=== PATIENT | female | born 1940 | race Caucasian/White ===

== ENCOUNTER 2017-08-30 06:57 | Inpatient (IN) | payer MEDICARE, OTHER ==
[~2017-08-30] VITALS: Ht 154.9 cm; Wt 58.7 kg
[2017-08-30] MEDS ORDERED: SODIUM CHLORIDE 0.9% 1,000 ML IV ONE (07:10)
[2017-08-30 07:54] LABS: Basophils # (auto) 0 uL; Basophils % (auto) 0.7 % (0.0-2.0); Eosinophils # (auto) 0.2 uL; Eosinophils % (auto) 3.4 % (0.0-7.0); Hematocrit 33.5 % (36.0-46.0); Hemoglobin 11.2 g/dL (12.2-16.2); Lymphocytes # (auto) 0.9 uL; Lymphocytes % (auto) 17.2 % (10.0-50.0); Mean Corpuscular Hemoglobin 30.2 pg (28.0-32.0); Mean Corpuscular Hgb Conc. 33.4 g/dL (32.0-36.0); Mean Corpuscular Volume 90.3 fL (80.0-100.0); Monocytes # (auto) 0.3 uL; Monocytes % (auto) 6.3 % (0.0-12.0); Neutrophils # (auto) 3.7 uL; Neutrophils % (auto) 72.4 % (37.0-80.0); Platelet Count (auto) 224 10^3/uL (140-450); Red Blood Cells 3.71 10^6/uL (4.0-5.20); Red Cell Distribution Width 14.7 % (11.8-14.3); White Blood Cell 5.1 10^3/uL (4.4-10.8)
[2017-08-30 08:08] LABS: Albumin 3.1 g/dL (3.4-5.0); BUN/Creatinine Ratio 18.1; Calcium 8.3 mg/dL (8.5-10.1)
[2017-08-30 08:15] LABS: INR 0.96 (0.9-1.15); Partial Thromboplastin Time 24.6 sec (23.78-33.04); Prothrombin Time 10.3 sec (9.27-12.13)
[2017-08-30 08:18] LABS: Bilirubin, Total 0.3 mg/dL (0.2-1.0); Total Protein 6.4 g/dL (6.4-8.2)
[2017-08-30 08:22] LABS: Potassium 2.7 mmol/L (3.5-5.1)
[2017-08-30] MEDS ORDERED: POTASSIUM CHL 10% (20 MEQ/15ML) 15ml ORAL SOLN PO ONE (08:30)
[2017-08-30] MEDS ORDERED: FUROSEMIDE 20 MG/2 ML VIAL IV ONE (09:00)
[2017-08-30] MEDS ORDERED: cloNIDine HCL 0.1 MG TAB PO ONE ×2 (09:00→11:00)
[2017-08-30] MEDS ORDERED: SULF-92 PO (10:06)
[2017-08-30] MEDS ORDERED: MAGN400T5 PO (10:06)
[2017-08-30] MEDS ORDERED: ISOS30TA4 PO (10:06)
[2017-08-30] MEDS ORDERED: FLU01T PO (10:06)
[2017-08-30] MEDS ORDERED: ASPI-231 PO (10:06)
[2017-08-30] MEDS ORDERED: METO25TA62 PO (10:06)
[2017-08-30] MEDS ORDERED: CARB25TA3 PO (10:06)
[2017-08-30] MEDS ORDERED: POTA10TA51 PO (10:06)
[2017-08-30] MEDS ORDERED: CYA100I PO (10:10)
[2017-08-30] MEDS ORDERED: OXYB15TA12 PO (10:10)
[2017-08-30] MEDS ORDERED: OYST500T28 PO (10:10)
[2017-08-30] MEDS ORDERED: CHOL20007 PO (10:10)
[2017-08-30] MEDS ORDERED: ATOR20TA PO (10:10)
[2017-08-30] MEDS ORDERED: CLON05T PO (10:10)
[2017-08-30] MEDS ORDERED: GABA300C10 PO (10:10)
[2017-08-30] MEDS ORDERED: hydrALAZINE HCL 20 MG/ML VL IV ONE (10:15)
[2017-08-30] MEDS ORDERED: clonazePAM 0.5 MG TAB PO PRN (14:00)
[2017-08-30] MEDS ORDERED: ALUM & MAG HYDROX-SIMETH LIQ(MAALOX) 30 ML PO PRN (14:00)
[2017-08-30] MEDS ORDERED: METOPROLOL SUCCINATE XL 50 MG TAB PO ONE ×2 (14:00→14:30)
[2017-08-30] MEDS ORDERED: cefTRIAXone 1GM/10ml IVPUSH 10 ML IV ONE (14:00)
[2017-08-30] MEDS ORDERED: HYDROcodone-ACET 5/325MG TAB PO PRN (14:15)
[2017-08-30] MEDS ORDERED: ONDANSETRON HCL 4 MG/2 ML VIAL IV PRN (14:15)
[2017-08-30] MEDS ORDERED: ACETAMINOPHEN 325 MG TAB PO PRN (14:15)
[2017-08-30] MEDS ORDERED: MILK OF MAGNESIA 30ML SUSP PO PRN (14:15)
[2017-08-30] MEDS ORDERED: TEMAZEPAM 15 MG CAP PO PRN (14:15)
[2017-08-30] MEDS ORDERED: DOCUSATE SOD 100 MG CAP PO PRN (14:15)
[2017-08-30] MEDS ORDERED: CHOLECALCIFEROL (VITD3) 1,000 UNIT TAB PO ONE (14:30)
[2017-08-30] MEDS ORDERED: POTASSIUM CHL 10 Meq TABLET PO ONE (14:30)
[2017-08-30] MEDS ORDERED: MULTIPLE VITAMIN TAB PO ONE (14:30)
[2017-08-30] MEDS ORDERED: ENOXAPARIN SOD 40 MG/0.4 ML SYRINGE SC ONE (14:30)
[2017-08-30] MEDS ORDERED: CARBIDOPA W LEVODOPA 25/100mg TABLET PO ONE (14:30)
[2017-08-30] MEDS ORDERED: OXYBUTYNIN CHL 5 MG TAB PO ONE (14:30)
[2017-08-30] MEDS ORDERED: CYANOCOBALAMIN 500 MCG TAB PO ONE (14:30)
[2017-08-30] MEDS ORDERED: FAMOTIDINE 20 MG TAB PO ONE (14:30)
[2017-08-30] MEDS: SODIUM CHLORIDE 0.9% 1,000 ML IV SCH (15:02)
[2017-08-30] MEDS: IBUPROFEN 600 MG TAB PO SCH ×2 (15:02→22:00)
[2017-08-30] MEDS: cloNIDine HCL 0.1 MG TAB PO PRN ×3 (15:15→22:38)
[2017-08-30] MEDS ORDERED: CALCIUM CHLOR(10%) 100MG/ML 10ML SYRINGE IV ONE (16:22)
[2017-08-30] MEDS ORDERED: DEXTROSE (50%) 50ML SYRG IV ONE (16:22)
[2017-08-30] MEDS ORDERED: SODIUM BICARBONATE 8.4% INJ 50ML SYRINGE IV ONE (16:22)
[2017-08-30] MEDS ORDERED: EPINEPHrine HCL 1 MG/10 ML SYRG IV ONE (16:22)
[2017-08-30 17:00] VITALS: BP 188/71
[2017-08-30] MEDS: BOOST PLUS 8 ounce PO SCH (17:55)
[2017-08-30] MEDS: CALCIUM CARB 500 MG CHEW TAB PO SCH (17:55)
[2017-08-30] MEDS ORDERED: CARBIDOPA W LEVODOPA 25/100mg TABLET PO SCH (18:00)
[2017-08-30] MEDS ORDERED: POTASSIUM CHLORIDE 20 MEQ, LIDOCAINE 1% (LOCAL ANESTH.) 2 ML in SODIUM CHL 0.9% 100 ML IV ONE (18:00)
[2017-08-30 18:34] LABS: Calcium 7.5 mg/dL (8.5-10.1)
[2017-08-30 18:38] LABS: Potassium 2.8 mmol/L (3.5-5.1)
[2017-08-30 19:09] LABS: BUN/Creatinine Ratio 19.4
[2017-08-30 20:10] VITALS: BP 137/54
[2017-08-30 20:10] LABS: Urine Bacteria FEW /hpf (None Seen); Urine Blood Negative /uL (Negative); Urine Specific Gravity 1.008 (1.001-1.035); Urine WBC 27 /hpf (0 - 5)
[2017-08-30 20:23] LABS: Cholesterol 133 mg/dL (< 200); HDL Cholesterol 48 mg/dL (40-59); LDL Cholesterol 75 mg/dL (< 100); Triglycerides 81 mg/dL (< 150)
[2017-08-30 22:00] VITALS: BP 167/67
[2017-08-30] MEDS: GABAPENTIN 300 MG CAP PO SCH (22:00)
[2017-08-30] MEDS: ATORVASTATIN 20 MG TAB PO SCH (22:40)
[2017-08-30] MEDS: FAMOTIDINE 20 MG TAB PO SCH (22:43)
[2017-08-30] MEDS: CARBIDOPA W LEVODOPA 25/100mg TABLET PO SCH (22:45)
[2017-08-31] VITALS (12 sets, daily range): BP systolic 68–196; BP diastolic 46–83
[2017-08-31] MEDS: cloNIDine HCL 0.1 MG TAB PO PRN ×2 (00:43→08:33)
[2017-08-31] MEDS: IBUPROFEN 600 MG TAB PO SCH (06:00)
[2017-08-31] MEDS: CARBIDOPA W LEVODOPA 25/100mg TABLET PO SCH ×5 (06:06→22:33)
[2017-08-31 06:16] LABS: Basophils # (auto) 0 uL; Basophils % (auto) 0.6 % (0.0-2.0); Eosinophils # (auto) 0.1 uL; Eosinophils % (auto) 2.2 % (0.0-7.0); Hematocrit 36.7 % (36.0-46.0); Hemoglobin 12.5 g/dL (12.2-16.2); Lymphocytes # (auto) 0.6 uL; Lymphocytes % (auto) 8.7 % (10.0-50.0); Mean Corpuscular Hemoglobin 30.4 pg (28.0-32.0); Mean Corpuscular Hgb Conc. 33.9 g/dL (32.0-36.0); Mean Corpuscular Volume 89.4 fL (80.0-100.0); Monocytes # (auto) 0.3 uL; Monocytes % (auto) 4.9 % (0.0-12.0); Neutrophils # (auto) 5.8 uL; Neutrophils % (auto) 83.6 % (37.0-80.0); Platelet Count (auto) 211 10^3/uL (140-450); Red Blood Cells 4.11 10^6/uL (4.0-5.20); Red Cell Distribution Width 14.6 % (11.8-14.3); White Blood Cell 6.9 10^3/uL (4.4-10.8)
[2017-08-31 06:41] LABS: Albumin 3.3 g/dL (3.4-5.0); BUN/Creatinine Ratio 18.2; Bilirubin, Total 0.4 mg/dL (0.2-1.0); Calcium 8.2 mg/dL (8.5-10.1); Potassium 3.1 mmol/L (3.5-5.1); Total Protein 6.6 g/dL (6.4-8.2)
[2017-08-31] MEDS: SODIUM CHLORIDE 0.9% 1,000 ML IV SCH (06:46)
[2017-08-31] MEDS: CALCIUM CARB 500 MG CHEW TAB PO SCH ×3 (08:00→18:00)
[2017-08-31] MEDS: BOOST PLUS 8 ounce PO SCH ×3 (08:32→18:00)
[2017-08-31] MEDS: cefTRIAXone 1GM/10ml IVPUSH 10 ML IV SCH (08:33)
[2017-08-31] MEDS: METOPROLOL SUCCINATE XL 50 MG TAB PO SCH (10:00)
[2017-08-31] MEDS ORDERED: ENOXAPARIN SOD 40 MG/0.4 ML SYRINGE SC SCH (10:00)
[2017-08-31] MEDS ORDERED: POTASSIUM CHL 10 Meq TABLET PO SCH (10:00)
[2017-08-31 11:04] LABS: Folate (Folic Acid) 6.6 ng/mL (5.38-24)
[2017-08-31] MEDS: MULTIPLE VITAMIN TAB PO SCH (12:14)
[2017-08-31] MEDS: OXYBUTYNIN CHL 5 MG TAB PO SCH (12:14)
[2017-08-31] MEDS ORDERED: POTASSIUM CHL 20 Meq TABLET PO ONE (12:15)
[2017-08-31] MEDS: FAMOTIDINE 20 MG TAB PO SCH ×2 (12:15→22:33)
[2017-08-31] MEDS: CHOLECALCIFEROL (VITD3) 1,000 UNIT TAB PO SCH (12:15)
[2017-08-31] MEDS: CYANOCOBALAMIN 500 MCG TAB PO SCH (12:15)
[2017-08-31] MEDS ORDERED: FUROSEMIDE 40 MG/4 ML VIAL IV ONE (12:30)
[2017-08-31] MEDS: FUROSEMIDE 40 MG/4 ML VIAL IV SCH (18:46)
[2017-08-31] MEDS: GABAPENTIN 300 MG CAP PO SCH (22:33)
[2017-08-31] MEDS: ATORVASTATIN 20 MG TAB PO SCH (22:33)
[2017-08-31] MEDS: POTASSIUM CHL 10 Meq TABLET PO SCH (22:33)
[2017-09-01] MEDS: cloNIDine HCL 0.1 MG TAB PO PRN ×2 (02:07→05:46)
[2017-09-01 05:57] VITALS: BP 203/73
[2017-09-01] MEDS: CARBIDOPA W LEVODOPA 25/100mg TABLET PO SCH ×5 (06:00→21:44)
[2017-09-01] MEDS: FUROSEMIDE 40 MG/4 ML VIAL IV SCH ×2 (06:27→18:41)
[2017-09-01 07:19] LABS: BUN/Creatinine Ratio 18.7; Calcium 8.5 mg/dL (8.5-10.1); Potassium 3.6 mmol/L (3.5-5.1)
[2017-09-01 09:00] VITALS: BP 146/79
[2017-09-01] MEDS: BOOST PLUS 8 ounce PO SCH ×3 (09:31→18:41)
[2017-09-01] MEDS: cefTRIAXone 1GM/10ml IVPUSH 10 ML IV SCH (09:31)
[2017-09-01] MEDS: CALCIUM CARB 500 MG CHEW TAB PO SCH ×3 (09:31→18:39)
[2017-09-01] MEDS: CHOLECALCIFEROL (VITD3) 1,000 UNIT TAB PO SCH (09:34)
[2017-09-01] MEDS: FAMOTIDINE 20 MG TAB PO SCH ×2 (09:34→21:44)
[2017-09-01] MEDS: POTASSIUM CHL 10 Meq TABLET PO SCH ×2 (09:34→21:44)
[2017-09-01] MEDS: CYANOCOBALAMIN 500 MCG TAB PO SCH (09:35)
[2017-09-01] MEDS: MULTIPLE VITAMIN TAB PO SCH (09:35)
[2017-09-01] MEDS: OXYBUTYNIN CHL 5 MG TAB PO SCH (09:35)
[2017-09-01] MEDS: METOPROLOL SUCCINATE XL 50 MG TAB PO SCH (09:36)
[2017-09-01 13:00] VITALS: BP 93/56
[2017-09-01 17:00] VITALS: BP 148/70
[2017-09-01] MEDS: GABAPENTIN 300 MG CAP PO SCH (21:44)
[2017-09-01] MEDS: ATORVASTATIN 20 MG TAB PO SCH (21:44)
[2017-09-01 23:16] VITALS: BP 150/72
[2017-09-02 05:31] VITALS: BP 129/60
[2017-09-02] MEDS: CARBIDOPA W LEVODOPA 25/100mg TABLET PO SCH ×4 (05:54→18:27)
[2017-09-02] MEDS: FUROSEMIDE 40 MG/4 ML VIAL IV SCH (05:54)
[2017-09-02 07:05] LABS: BUN/Creatinine Ratio 24.3; Potassium 3.6 mmol/L (3.5-5.1)
[2017-09-02] MEDS: BOOST PLUS 8 ounce PO SCH ×3 (08:09→18:24)
[2017-09-02 08:30] VITALS: BP 90/50
[2017-09-02] MEDS: cefTRIAXone 1GM/10ml IVPUSH 10 ML IV SCH (08:44)
[2017-09-02] MEDS: CALCIUM CARB 500 MG CHEW TAB PO SCH ×3 (08:44→18:27)
[2017-09-02] MEDS ORDERED: POTASSIUM CHL 10 Meq TABLET PO SCH (10:00)
[2017-09-02] MEDS ORDERED: CEPH-37 PO (10:20)
[2017-09-02] MEDS ORDERED: FURO20TA3 PO (10:21)
[2017-09-02] MEDS: OXYBUTYNIN CHL 5 MG TAB PO SCH (10:33)
[2017-09-02] MEDS: CHOLECALCIFEROL (VITD3) 1,000 UNIT TAB PO SCH (10:34)
[2017-09-02] MEDS: FAMOTIDINE 20 MG TAB PO SCH (10:34)
[2017-09-02] MEDS: CYANOCOBALAMIN 500 MCG TAB PO SCH (10:34)
[2017-09-02] MEDS: MULTIPLE VITAMIN TAB PO SCH (10:34)
[2017-09-02] MEDS: METOPROLOL SUCCINATE XL 50 MG TAB PO SCH (10:35)
[2017-09-02 12:04] VITALS: BP 116/65
[2017-09-02 12:30] VITALS: BP 155/66
[2017-09-02 16:50] VITALS: BP 159/67
== END 2017-09-02 19:45 | DRG 77 ==
LOC: ER 06:57 → EDBD 06:57 → OVERFLOW 06:58 → CENTRAL 15:30
PROVIDERS: ADMIT Internal Medicine; ATTEND Internal Medicine
DX: I67.4 Hypertensive encephalopathy (principal); J96.91 Respiratory failure, unspecified with hypoxia; I50.33 Acute on chronic diastolic (congestive) heart failure; E44.0 Moderate protein-calorie malnutrition; N39.0 Urinary tract infection, site not specified; E87.0 Hyperosmolality and hypernatremia; G23.1 Progressive supranuclear ophthalmoplegia [Steele-Richardson-Olszewski]; I11.0 Hypertensive heart disease with heart failure; Z66 Do not resuscitate; F03.90 Unspecified dementia, unspecified severity, without behavioral disturbance, psychotic disturbance, mood disturbance, and anxiety; D63.8 Anemia in other chronic diseases classified elsewhere; E87.6 Hypokalemia; F32.9 Major depressive disorder, single episode, unspecified; G20 Parkinson's disease; I25.10 Atherosclerotic heart disease of native coronary artery without angina pectoris; I08.1 Rheumatic disorders of both mitral and tricuspid valves; R55 Syncope and collapse; R00.1 Bradycardia, unspecified; E83.51 Hypocalcemia; N18.2 Chronic kidney disease, stage 2 (mild); F17.200 Nicotine dependence, unspecified, uncomplicated; Z95.1 Presence of aortocoronary bypass graft; Z90.49 Acquired absence of other specified parts of digestive tract; Z86.73 Personal history of transient ischemic attack (TIA), and cerebral infarction without residual deficits; Z88.0 Allergy status to penicillin; Z88.2 Allergy status to sulfonamides
CPT/HCPCS: 36415; 70450; 70551; 71045; 80048; 80053; 80061; 81001; 82607; 82746; 82962; 83735; 83880; 84443; 84484; 85025; 85610; 85730; 87086; 93005; 93306; 93886; 95819; 96361; 96374; 96375; 97110; 97530; J2001

== ENCOUNTER → 2018-11-25 | Outpatient (CLI) | payer MEDICARE, OTHER ==
[~2018-11-25] MED LIST: ASPI-231 PO; ATOR20TA PO; BENZ100C70 PO; CARB25TA3 PO; CEPH-37 PO; CHOL20007 PO; CLON0.5T11 PO; CYA100I PO; FLU01T PO; FURO20TA3 PO; GABA300C10 PO; IBUP600T27 PO; ISOS30TA4 PO; MAGN400T5 PO; METO25TA62 PO; OXYB15TA12 PO; OYST500T28 PO; POTA10TA51 PO; SULF-92 PO
== END | disposition home or self-care (01) ==
LOC: XY 09:55
PROVIDERS: ATTEND Internal Medicine
DX: I70.203 Unspecified atherosclerosis of native arteries of extremities, bilateral legs (principal); L81.9 Disorder of pigmentation, unspecified; R20.9 Unspecified disturbances of skin sensation
CPT/HCPCS: 93925

== ENCOUNTER → 2019-01-04 | Outpatient (CLI) | payer MEDICARE, OTHER | END | disposition home or self-care (01) | LOC: Rad HDHVI 13:01 | PROVIDERS: ATTEND Internal Medicine Cardiovascular Disease | DX: I25.10 Atherosclerotic heart disease of native coronary artery without angina pectoris (principal); R07.89 Other chest pain; I11.0 Hypertensive heart disease with heart failure; I50.42 Chronic combined systolic (congestive) and diastolic (congestive) heart failure; E78.5 Hyperlipidemia, unspecified; E11.9 Type 2 diabetes mellitus without complications; G23.1 Progressive supranuclear ophthalmoplegia [Steele-Richardson-Olszewski]; G20 Parkinson's disease; E55.9 Vitamin D deficiency, unspecified; Z95.1 Presence of aortocoronary bypass graft | CPT/HCPCS: 36415; 80053; 80061; 82043; 82306; 83036; 93306 ==

== ENCOUNTER → 2019-08-17 | Outpatient (CLI) | payer MEDICARE, OTHER ==
[~2019-08-17] MED LIST changes: -CLON0.5T11 PO; +CLON0.5T3 PO; +MAGN400T40 PO; -MAGN400T5 PO; -METO25TA62 PO; +METO25TA93 PO
[2019-08-17 12:51] LABS: Urine Amorphous Crystal MANY /hpf (None Seen); Urine Bacteria FEW /hpf (None Seen); Urine Blood Negative /uL (Negative); Urine Specific Gravity 1.014 (1.001-1.035); Urine WBC 15 /hpf (0 - 5)
== END | disposition home or self-care (01) ==
LOC: LAB 12:18
PROVIDERS: ATTEND Internal Medicine
DX: N39.0 Urinary tract infection, site not specified (principal)
CPT/HCPCS: 81001; 87086

== ENCOUNTER 2019-09-09 17:31 | Inpatient (IN) | payer MEDICARE, OTHER ==
[~2019-09-09] VITALS: Ht 154.9 cm; Wt 50.5 kg
[2019-09-09 18:28] LABS: Basophils # (auto) 0 10 ^3/uL (0-0.2); Basophils % (auto) 0.2 % (0.0-2.0); Eosinophils # (auto) 0 10 ^3/uL (0-0.8); Hematocrit 36.7 % (36.0-46.0); Hemoglobin 12.1 g/dL (12.2-16.2); Lymphocytes # (auto) 0.4 10 ^3/uL (0.4-5.4); Lymphocytes % (auto) 12.7 % (10.0-50.0); Mean Corpuscular Hgb Conc. 32.9 g/dL (32.0-36.0); Mean Corpuscular Volume 91.1 fL (80.0-100.0); Monocytes # (auto) 0.3 10 ^3/uL (0-1.3); Monocytes % (auto) 7.8 % (0.0-12.0); Neutrophils # (auto) 2.7 10 ^3/uL (1.6-8.6); Neutrophils % (auto) 79.3 % (37.0-80.0); Platelet Count (auto) 116 10^3/uL (140-450); Red Blood Cells 4.03 10^6/uL (4.0-5.20); Red Cell Distribution Width 13.8 % (11.8-14.3); White Blood Cell 3.3 10^3/uL (4.4-10.8)
[2019-09-09] MEDS ORDERED: ACETAMINOPHEN 650 MG RECT SUPP PR ONE (18:30)
[2019-09-09 18:46] LABS: Albumin 3.1 g/dL (3.4-5.0); Anion Gap 6 (5-15); BUN/Creatinine Ratio 31.6; Blood Urea Nitrogen 30 mg/dL (7-18); Calcium 7.7 mg/dL (8.5-10.1); Carbon Dioxide 29 mmol/L (21-32); Chloride 105 mmol/L (98-107); GFR African American 73 mL/min; GFR Non-African American 60 mL/min; Glucose 107 mg/dL (74-106); Magnesium 2.1 mg/dL (1.6-2.6); Potassium 3.6 mmol/L (3.5-5.1); Sodium 140 mmol/L (136-145)
[2019-09-09 18:46] LABS: Urine Bacteria NONE SEEN /hpf (None Seen); Urine Blood 1+ /uL (Negative); Urine Mucus FEW (None Seen); Urine Specific Gravity 1.019 (1.001-1.035); Urine WBC 2363 /hpf (0 - 5); Urine WBC Clumps PRESENT /hpf (None Seen)
[2019-09-09 18:51] LABS: Alanine Aminotransferase 9 U/L (13-56); Alkaline Phosphatase 84 U/L (45-117); Aspartate Aminotransferase 23 U/L (15-37); Bilirubin, Total 0.3 mg/dL (0.2-1.0); Total Protein 6.6 g/dL (6.4-8.2)
[2019-09-09] MEDS ORDERED: cefTRIAXone 1GM/50ML D5W 50 ML IV ONE ×2 (19:00→19:02)
[2019-09-09] MEDS ORDERED: SODIUM CHLORIDE 0.9% 1,000 ML IV ONE (19:00)
[2019-09-09 19:11] LABS: Alcohol, Urine < 3.0 mg/dL (0-10); Amphetamine Screen, Urine NEGATIVE (NEGATIVE); Barbiturate Scree,Urine NEGATIVE (NEGATIVE); Benzodiazephine Screen, Urine NEGATIVE (NEGATIVE); Cannabinoid Screen, Urine NEGATIVE (NEGATIVE); Cocaine Screen, Urine NEGATIVE (NEGATIVE); Opiate Scree,Urine NEGATIVE (NEGATIVE); Phencyclidine Screen, Urine NEGATIVE (NEGATIVE)
[2019-09-09 19:41] LABS: INR 1.02 (0.9-1.15); Partial Thromboplastin Time 26.5 sec (23.64-32.05)
[2019-09-09] MEDS ORDERED: SODIUM CHLORIDE 0.9% 1,000 ML IV SCH (23:44)
[2019-09-09] MEDS ORDERED: ACETAMINOPHEN 325 MG TAB PO PRN (23:45)
[2019-09-09] MEDS ORDERED: DOCUSATE SOD 100 MG CAP PO PRN (23:45)
[2019-09-09] MEDS ORDERED: MORPHINE SULF INJ 2 MG/ML SYRINGE 1ML IV PRN (23:45)
[2019-09-09] MEDS ORDERED: ACETAMINOPHEN 500 MG TAB PO PRN (23:45)
[2019-09-09] MEDS ORDERED: ONDANSETRON HCL 4 MG/2 ML VIAL IV PRN (23:45)
[2019-09-09] MEDS ORDERED: NITROGLYCERIN 0.4 MG SL TAB SL PRN (23:45)
[2019-09-10] VITALS (7 sets, daily range): BP systolic 115–159; BP diastolic 46–97
--- NOTE | 2019-09-10 01:15 | NUR ---
Telemetry admit from ER VENANCIO SARKAR admitted to Telemetry unit. Patient oriented to JUAN SALOMON RN primary RN, unit, room, bed, and unit policies regarding patient care and visiting hours. Patient now on continuous telemetry monitoring, tele box # 13 and telemetry reading on arrival to unit is sinus rhythm. Patient placed on bedside oxygen at 2 liters via nasal cannula, weighed by bedscale and encouraged to call if they need something. All questions and concerns addressed, patient verbalized understanding. Bed in lowest locked position, side rails up x2, call light within reach, bed alarm on. Will round every hour and as needed and continue to monitor.
--- NOTE | 2019-09-10 02:19 | NUR ---
Received notification patient is positive for COVID 19. Will make resolution expert hospitalist aware and continue to monitor.
--- NOTE | 2019-09-10 02:20 | NUR ---
Dr. Arsh Bernard MD made aware of patient's positive COVID 19 status at this time. No new orders, will continue care.
--- NOTE | 2019-09-10 04:05 | NUR ---
Skin tears to bilateral elbows noted on admission. Wound care photos taken, will fill out wound care documentation and leave in wound care's box. Will continue care.
--- NOTE | 2019-09-10 05:00 | NUR ---
Unable to obtain AM labs after two attempts, lab staff made aware. Will continue care.
--- NOTE | 2019-09-10 05:58 | NUR ---
Ordered MDI unavailable at this time. Spoke with RT, RT will obtain MDI from pharmacy and come to administer medication. Will make dayshift RN aware and continue to monitor patient.
--- NOTE | 2019-09-10 07:10 | NUR ---
Closing Note Patient lying in bed, awake and alert. Bed in lowest locked position, side rails up x2, call light within reach, bed alarm on. No s/s of distress. Will endorse care to dayshift RN.
[2019-09-10] MEDS: ALBUTEROL SULF HFA 90MCG INH 200DOSE IN SCH ×3 (07:16→22:55)
--- NOTE | 2019-09-10 07:35 | NUR ---
Opening Shift Note Assumed care of patient, awake and alert x1, calm. No S/S of distress/SOB or pain. Instructed on POC and to call for assist PRN, will continue to monitor for changes Q1hr and PRN.
[2019-09-10 09:18] LABS: Basophils # (auto) 0 10 ^3/uL (0-0.2); Eosinophils # (auto) 0 10 ^3/uL (0-0.8); Hemoglobin 12.4 g/dL (12.2-16.2); Lymphocytes # (auto) 0.3 10 ^3/uL (0.4-5.4); Monocytes # (auto) 0.2 10 ^3/uL (0-1.3)
[2019-09-10 09:20] LABS: Basophils % (auto) 0.3 % (0.0-2.0); Eosinophils % (auto) 0.1 % (0.0-7.0); Hematocrit 37.5 % (36.0-46.0); Lymphocytes % (auto) 9.9 % (10.0-50.0); Mean Corpuscular Hemoglobin 30.2 pg (28.0-32.0); Mean Corpuscular Volume 91.7 fL (80.0-100.0); Monocytes % (auto) 6.5 % (0.0-12.0); Neutrophils # (auto) 2.5 10 ^3/uL (1.6-8.6); Neutrophils % (auto) 83.2 % (37.0-80.0); Platelet Count (auto) 101 10^3/uL (140-450); Red Blood Cells 4.09 10^6/uL (4.0-5.20); Red Cell Distribution Width 13.7 % (11.8-14.3)
[2019-09-10 09:25] LABS: Anion Gap 9 (5-15); Calcium 7.6 mg/dL (8.5-10.1); Carbon Dioxide 24 mmol/L (21-32); Chloride 108 mmol/L (98-107); Glucose 78 mg/dL (74-106); Magnesium 2.3 mg/dL (1.6-2.6); Potassium 3.4 mmol/L (3.5-5.1); Sodium 141 mmol/L (136-145)
[2019-09-10 09:34] LABS: Alanine Aminotransferase 17 U/L (13-56); Alkaline Phosphatase 77 U/L (45-117); Aspartate Aminotransferase 32 U/L (15-37); BUN/Creatinine Ratio 31.4; Bilirubin, Total 0.3 mg/dL (0.2-1.0); Blood Urea Nitrogen 22 mg/dL (7-18); GFR African American 103 mL/min; GFR Non-African American 85 mL/min; Total Protein 6.3 g/dL (6.4-8.2)
[2019-09-10] MEDS: CHOLECALCIFEROL (VITD3) 1,000UNIT=25mCg TAB PO SCH (10:42)
[2019-09-10] MEDS: cefTRIAXone 1GM/50ML D5W 50 ML IV SCH (10:42)
[2019-09-10] MEDS: ENOXAPARIN SOD 40 MG/0.4 ML SYRINGE SC SCH (10:43)
[2019-09-10] MEDS: ZINC SULFATE 220mg CAP or TAB PO SCH (10:43)
[2019-09-10] MEDS: DOXYCYCLINE 100MG/250ML 250 ML IV SCH ×2 (10:43→22:55)
[2019-09-10] MEDS: ASCORBIC ACID 1,000 MG TAB PO SCH (10:43)
[2019-09-10] MEDS ORDERED: CYANOCOBALAMIN 500 MCG TAB PO ONE (12:00)
--- NOTE | 2019-09-10 12:30 | NUR ---
WOUND CARE NOTE: IN TO SEE PATIENT AT THIS TIME PER WOUND CARE CONSULT REQUEST. PATIENT RECENTLY ADMITTED TO [facility] WITH DIAGNOSIS OF RULE OUT COVID, UTI. PATIENT NOTED TO HAVE WOUNDS TO BILATERAL UPPER EXTREMITIES. WOUND PHOTOS TAKEN AT THIS TIME FOR REFERENCE, BY BEDSIDE NURSE. PATIENT HAS CURRENT CYNTHIA SCORE OF 17. PATIENT IS ABLE TO SELF TURN/REPOSITION SELF. SHE IS NOTED TO HAVE SKIN TEARS TO BILATERAL ARMS. RIGHT ARM TEAR HAS BEEN REAPPROXIMATED WITH STERISTRIPS. LEFT ARM TEAR IS CLOSED WITH SCAB. APPLIED OPTIFOAM GENTLE DRESSINGS TO COVER AND PROTECT SKIN. NO OTHER SKIN INTEGRITY ISSUES SEEN AT THIS TIME. RECOMMEND: Q 3 DAY/PRN DRESSING CHANGE TO BILATERAL ARMS, SKIN/WOUND CARE PLAN, FREQUENT TURN SCHEDULE Q 2 HOURS, PRN CONDITION PERMITS, WITH PRESSURE REDISTRIBUTION USING PILLOWS/WEDGES, BID/PRN APPLICATION WITH MOISTURE BARRIER CREAM, OPTIFOAM GENTLE SACRAL DRESSING PREVENTATIVE, CONTINUED MONITORING BY WOUND CARE TEAM. Addendum: 09/10/19 at 1555 by Ileana Arango RN Amended: Links added.
[2019-09-10] MEDS: CARBIDOPA W LEVODOPA 25/100mg TABLET PO SCH ×3 (13:49→22:55)
--- NOTE | 2019-09-10 13:49 | NUR ---
DAIANA DAMON ADMINISTER MDI TO PT, PT ALEIDA. WELL. WILL CONTINUE TO MONITOR PT.
--- NOTE | 2019-09-10 19:18 | NUR ---
OPENING SHIFT NOTE: ASSUMED CARE OF PATIENT. PATIENT IS AWAKE, ALERT AND ORIENTED TO SELF ONLY. NO S/S OF SOB OR DISTRESS, O2 SATURATION 95% ON 2L NC, RESPIRATIONS EVEN AND UNLABORED. BED IS IN LOWEST LOCKED POSITION WITH TWO SIDE RAILS RAISED, BED ALARM ACTIVATED FOR SAFETY, AND CALL HAWKINS WITHIN REACH. INSTRUCTED ON POC AND ENCOURAGED TO USE CALL HAWKINS FOR ASSISTANCE, PATIENT UNABLE TO VERBALIZE UNDERSTANDING AT THIS TIME. WILL CONTINUE TO MONITOR Q1 HR AND PRN.
--- NOTE | 2019-09-10 23:00 | NUR ---
MED HELD SCHEDULED DOXYCYCLINE UNAVAILABLE. SPOKE WITH PHARMACY, OPERATIONS AND MAINTENANCE TECHNICIAN, AND GREEN MARKETING SPECIALIST, MEDICATION WILL NOT BE AVAILABLE UNTIL MORNING DOSE. 2200 DOSE NON-ADMINISTERED.
[2019-09-11] VITALS (7 sets, daily range): BP systolic 113–158; BP diastolic 57–75
[2019-09-11 05:38] LABS: Basophils # (auto) 0 10 ^3/uL (0-0.2); Basophils % (auto) 0.3 % (0.0-2.0); Eosinophils # (auto) 0 10 ^3/uL (0-0.8); Hematocrit 37.5 % (36.0-46.0); Hemoglobin 12.5 g/dL (12.2-16.2); Lymphocytes # (auto) 0.4 10 ^3/uL (0.4-5.4); Lymphocytes % (auto) 10.2 % (10.0-50.0); Mean Corpuscular Hemoglobin 30.1 pg (28.0-32.0); Mean Corpuscular Hgb Conc. 33.3 g/dL (32.0-36.0); Mean Corpuscular Volume 90.3 fL (80.0-100.0); Monocytes # (auto) 0.3 10 ^3/uL (0-1.3); Monocytes % (auto) 7.7 % (0.0-12.0); Neutrophils # (auto) 2.9 10 ^3/uL (1.6-8.6); Neutrophils % (auto) 81.8 % (37.0-80.0); Nucleated Red Blood Cells % 0.1 %; Platelet Count (auto) 104 10^3/uL (140-450); Red Blood Cells 4.15 10^6/uL (4.0-5.20); Red Cell Distribution Width 13.7 % (11.8-14.3); White Blood Cell 3.5 10^3/uL (4.4-10.8)
[2019-09-11 05:54] LABS: BUN/Creatinine Ratio 26.9; Potassium 3.3 mmol/L (3.5-5.1)
[2019-09-11] MEDS: CARBIDOPA W LEVODOPA 25/100mg TABLET PO SCH ×4 (06:33→22:00)
[2019-09-11] MEDS: ALBUTEROL SULF HFA 90MCG INH 200DOSE IN SCH ×3 (06:33→22:00)
--- NOTE | 2019-09-11 06:33 | NUR ---
MDI ADMINISTERED BY DAIANA GARCÍA. PT WITH SPO2 96%, HR 82.
--- NOTE | 2019-09-11 06:48 | NUR ---
SPOKE WITH RESOURCE ROOM SPECIAL EDUCATION TEACHER VELVET REGARDING DOXYCYCLINE, PER PHARMACIST THIS MEDICATION IS NOT AVAILABLE AT THIS HOSPITAL. HOSPITALIST PAGED TO REQUEST NEW ORDER/CLARIFICATION OF ORDERS FOR IV DOXYCYCLINE.
--- NOTE | 2019-09-11 07:05 | NUR ---
HOSPITALIST SPOKE WITH HOSPITALIST MD TIFFANI GUEVARA/ NEW ORDERS FOR PO DOXYCYCLINE RECEIVED, WILL NOTE NEW ORDER, SEE EMAR FOR DETAILS.
--- NOTE | 2019-09-11 07:45 | NUR ---
OPENING NOTE ASSUMED CARE OF PT. PT AWAKE AND ALERT. NO S/S OF SOB/ DISTRESS NOTED. BED SET TO LOWEST POSITION/LOCKED. BEDSIDE RAILS UP X2. BED ALARM ON. CALL LIGHT WITHIN REACH. INSTRUCTED PT TO CALL FOR ASSISTANCE. WILL CONTINUE TO MONITOR Q1HR AND PRN.
[2019-09-11] MEDS: CYANOCOBALAMIN 500 MCG TAB PO SCH (10:00)
[2019-09-11] MEDS ORDERED: CLINIMIX PER PHARMACY 0 ML IV SCH (11:00)
[2019-09-11] MEDS: cefTRIAXone 1GM/50ML D5W 50 ML IV SCH (11:22)
[2019-09-11] MEDS: FLUDROCORTISONE ACETATE 0.1 MG TAB PO SCH (11:23)
[2019-09-11] MEDS: ASPirin 81 mg TAB PO SCH (11:23)
[2019-09-11] MEDS: ZINC SULFATE 220mg CAP or TAB PO SCH (11:23)
[2019-09-11] MEDS: ISOSORBIDE MONONITRATE ER 60 MG TAB PO SCH (11:24)
[2019-09-11] MEDS: DOXYCYCLINE 100 MG TAB/CAP PO SCH ×2 (11:24→22:00)
[2019-09-11] MEDS: CHOLECALCIFEROL (VITD3) 1,000UNIT=25mCg TAB PO SCH (11:25)
[2019-09-11] MEDS: ASCORBIC ACID 1,000 MG TAB PO SCH (11:25)
[2019-09-11] MEDS: ENOXAPARIN SOD 40 MG/0.4 ML SYRINGE SC SCH (11:26)
[2019-09-11 12:03] LABS: Magnesium 2.2 mg/dL (1.6-2.6)
[2019-09-11 12:06] LABS: Pre Albumin 10.1 mg/dL (20.0-40.0)
[2019-09-11] MEDS: InsuLIN REG 1unit/0.01ml Soln (100units/ml) SC SCH (17:46)
[2019-09-11] MEDS: ACCU-CHEK COMFORT CURVE STRIP VI SCH (17:46)
[2019-09-11] MEDS ORDERED: DEXTROSE (50%) 50ML SYRG IV SCH (18:00)
--- NOTE | 2019-09-11 18:40 | NUR ---
SON SPOKE TO PATIENTS SON VIA TELEPHONE. SON REQUESTING UPDATE ON MOTHER STATUS. SON IS REQUESTING MD TO CALL HIM .
--- NOTE | 2019-09-11 19:20 | NUR ---
OPENING SHIFT NOTE: ASSUMED CARE OF PATIENT. PATIENT ALERT AND ORIENTED TO SELF ONLY. NO S/S OF SOB OR DISTRESS, RESPIRATIONS ARE EVEN AND UNLABORED WITH O2 SATURATION 94% ON 2L NC. PROPER ISOLATION PRECAUTIONS IN PLACE AND CARE PROVIDED USING PPE. NUR IS HUNG BELOW THE BLADDER AND DRAINING TO GRAVITY. BED IN LOWEST LOCKED POSITION WITH TWO SIDE RAILS RAISED, BED ALARM ACTIVATED FOR SAFETY AND CALL HAWKINS WITHIN REACH. INSTRUCTED ON POC AND ENCOURAGED TO USE CALL HAWKINS FOR ASSISTANCE. WILL CONTINUE TO MONITOR Q1 HR AND PRN.
[2019-09-11] MEDS ORDERED: AMINO ACID INFUSION IN D5W 2,000 ML IV NR (20:00)
--- NOTE | 2019-09-11 20:30 | NUR ---
MED HELD. CLINIMIX UNAVAILABLE. SPOKE WITH LARRY CAR OPERATOR, MEDICATION WON'T BE AVAILABLE UNTIL TOMORROW. WILL ENDORSE TO DAYSHIFT RN.
--- NOTE | 2019-09-11 22:00 | NUR ---
TEMP AXILLARY TEMPERATURE 101.1 F, TYLENOL ADMINISTERED AND COOLING MEASURES INITIATED. WILL CONTINUE TO MONITOR.
--- NOTE | 2019-09-11 22:44 | NUR ---
MDI ADMINISTERED BY DAIANA GARCÍA.
[2019-09-12] MEDS: ACCU-CHEK COMFORT CURVE STRIP VI SCH ×4 (00:26→17:39)
[2019-09-12 05:08] LABS: Basophils # (auto) 0 10 ^3/uL (0-0.2); Basophils % (auto) 0.2 % (0.0-2.0); Eosinophils # (auto) 0 10 ^3/uL (0-0.8); Eosinophils % (auto) 0.1 % (0.0-7.0); Hematocrit 36.5 % (36.0-46.0); Lymphocytes # (auto) 0.6 10 ^3/uL (0.4-5.4); Lymphocytes % (auto) 22.1 % (10.0-50.0); Mean Corpuscular Hemoglobin 30.1 pg (28.0-32.0); Mean Corpuscular Volume 91.2 fL (80.0-100.0); Monocytes # (auto) 0.3 10 ^3/uL (0-1.3); Monocytes % (auto) 11.6 % (0.0-12.0); Neutrophils # (auto) 1.9 10 ^3/uL (1.6-8.6); Platelet Count (auto) 106 10^3/uL (140-450); Red Cell Distribution Width 13.7 % (11.8-14.3); White Blood Cell 2.8 10^3/uL (4.4-10.8)
[2019-09-12 05:23] VITALS: BP 148/62
[2019-09-12 05:26] LABS: Albumin 2.9 g/dL (3.4-5.0); Calcium 8.5 mg/dL (8.5-10.1); Magnesium 2.3 mg/dL (1.6-2.6); Potassium 3.1 mmol/L (3.5-5.1)
[2019-09-12 05:36] LABS: Bilirubin, Total 0.3 mg/dL (0.2-1.0); CRP High Sensitivity 11.5 mg/dL (< 0.3); Phosphorus 3.8 mg/dL (2.5-4.90); Total Protein 6.5 g/dL (6.4-8.2)
[2019-09-12] MEDS: InsuLIN REG 1unit/0.01ml Soln (100units/ml) SC SCH ×4 (06:00→17:39)
[2019-09-12] MEDS: CARBIDOPA W LEVODOPA 25/100mg TABLET PO SCH ×4 (06:00→22:00)
[2019-09-12] MEDS: ALBUTEROL SULF HFA 90MCG INH 200DOSE IN SCH ×3 (06:00→22:39)
--- NOTE | 2019-09-12 07:30 | NUR ---
Opening Shift Note Assumed care of patient, difficult to awake, will not open eyes or talk at this time. No S/S of distress/SOB or pain, moist cough present, O2 at l sat 94. Instructed on POC and to call for assist PRN, will continue to monitor for changes Q1hr and PRN.
[2019-09-12] MEDS: FLUDROCORTISONE ACETATE 0.1 MG TAB PO SCH (10:00)
[2019-09-12] MEDS: ASCORBIC ACID 1,000 MG TAB PO SCH (10:00)
[2019-09-12] MEDS: DOXYCYCLINE 100 MG TAB/CAP PO SCH ×2 (10:00→22:00)
[2019-09-12] MEDS: ASPirin 81 mg TAB PO SCH (10:00)
[2019-09-12] MEDS: CYANOCOBALAMIN 500 MCG TAB PO SCH (10:00)
[2019-09-12] MEDS: ISOSORBIDE MONONITRATE ER 60 MG TAB PO SCH (10:00)
[2019-09-12] MEDS: CHOLECALCIFEROL (VITD3) 1,000UNIT=25mCg TAB PO SCH (10:00)
[2019-09-12] MEDS: ZINC SULFATE 220mg CAP or TAB PO SCH (10:00)
[2019-09-12] MEDS ORDERED: POTASSIUM CHLORIDE 20 MEQ, LIDOCAINE 1% (LOCAL ANESTH.) 2 ML in SODIUM CHL 0.9% 100 ML IV ONE (11:00)
[2019-09-12] MEDS ORDERED: ERTAPENEM SOD INJ 1 GM in SODIUM CHL 0.9% 50 ML IV ONE (11:00)
[2019-09-12] MEDS: ENOXAPARIN SOD 40 MG/0.4 ML SYRINGE SC SCH (13:07)
[2019-09-12] MEDS ORDERED: PPN PER PHARMACY 500 ML IV SCH (13:15)
--- NOTE | 2019-09-12 14:00 | NUR ---
Patient more awake now, was able to open her eyes and talk, alert X1, i assisted with lunch she was able to eat about 10%. Sitting up in bed, tv on, no s/s of distress noted, will continue to monitor.
--- NOTE | 2019-09-12 15:04 | NUR ---
Nutrition Consult/assessment notes Please see attached link for complete assessment [employer] needs IBW 47 [id number] kcals (25-30 kcal/kgBW), Est Protein needs: 47-56 gms/day (1.0-1.2 gm/kgBW). Will continue to monitor and reassess prn. Addendum: 09/12/19 at [address] Amended: Links added.
--- NOTE | 2019-09-12 19:55 | NUR ---
Opening Shift Note Assumed care of patient, awake and alert to self. No S/S of distress/SOB or pain. fall precautions in place. patient position to comfort. HOB up.Instructed on POC and to call for assist PRN, will continue to monitor for changes Q1hr and PRN. bed in low position and call light within reach.
[2019-09-12] MEDS ORDERED: PPN PER PHARMACY IV NR ×8 (20:00)
[2019-09-12 22:00] VITALS: BP 154/93
--- NOTE | 2019-09-12 22:50 | NUR ---
dressing change done per md order.
[2019-09-13] VITALS (7 sets, daily range): BP systolic 71–149; BP diastolic 40–68
--- NOTE | 2019-09-13 04:14 | NUR ---
SPOKE WITH GRUZOBZOR. INFORMED HER TO SEND SOMEONE TO DRAW LAB.
[2019-09-13] MEDS: ALBUTEROL SULF HFA 90MCG INH 200DOSE IN SCH ×3 (05:41→22:00)
--- NOTE | 2019-09-13 05:41 | NUR ---
MDI ADMINISTERED BY RUDI AHMADI.
[2019-09-13] MEDS: ACCU-CHEK COMFORT CURVE STRIP VI SCH ×5 (05:46→23:33)
[2019-09-13] MEDS: CARBIDOPA W LEVODOPA 25/100mg TABLET PO SCH ×4 (05:46→22:20)
[2019-09-13] MEDS: InsuLIN REG 1unit/0.01ml Soln (100units/ml) SC SCH ×5 (05:46→23:33)
--- NOTE | 2019-09-13 05:47 | NUR ---
VISUAL BASIC .NET DEVELOPER NOTIFIED OF LAB DRAWS AGAIN. SHE STATED THEY ARE AWARE.
--- NOTE | 2019-09-13 05:48 | NUR ---
PATIENT IS MORE AWAKE AND ALERT. PATIENT ABLE TO SWALLOW PILL WITHOUT DIFFICULTY. NO SIGNS OF ASPIRATION.
--- NOTE | 2019-09-13 07:24 | NUR ---
Report given to dayshift RN. Patient denies sob distress or pain.
[2019-09-13 07:34] LABS: Basophils # (auto) 0 10 ^3/uL (0-0.2); Basophils % (auto) 0.2 % (0.0-2.0); Eosinophils # (auto) 0 10 ^3/uL (0-0.8); Eosinophils % (auto) 0.1 % (0.0-7.0); Hematocrit 35.7 % (36.0-46.0); Hemoglobin 11.8 g/dL (12.2-16.2); Lymphocytes # (auto) 0.3 10 ^3/uL (0.4-5.4); Lymphocytes % (auto) 10.3 % (10.0-50.0); Mean Corpuscular Hemoglobin 30.1 pg (28.0-32.0); Mean Corpuscular Hgb Conc. 33.2 g/dL (32.0-36.0); Mean Corpuscular Volume 90.9 fL (80.0-100.0); Monocytes # (auto) 0.3 10 ^3/uL (0-1.3); Monocytes % (auto) 8.6 % (0.0-12.0); Neutrophils # (auto) 2.4 10 ^3/uL (1.6-8.6); Neutrophils % (auto) 80.8 % (37.0-80.0); Platelet Count (auto) 122 10^3/uL (140-450); Red Blood Cells 3.93 10^6/uL (4.0-5.20); Red Cell Distribution Width 13.5 % (11.8-14.3)
--- NOTE | 2019-09-13 07:50 | NUR ---
Opening Shift Note Assumed care of patient, awake and alert. No S/S of distress/SOB or pain. Bed in lowest/locked position, bed rails upx2, call light within reach HOB >30 degrees. Instructed on POC and to call for assist PRN, will continue to monitor for changes Q1hr and PRN.
[2019-09-13 07:53] LABS: Albumin 2.7 g/dL (3.4-5.0); Calcium 8.1 mg/dL (8.5-10.1); Magnesium 2.2 mg/dL (1.6-2.6); Potassium 3.1 mmol/L (3.5-5.1)
[2019-09-13 07:57] LABS: BUN/Creatinine Ratio 39.7; Bilirubin, Total 0.3 mg/dL (0.2-1.0); Phosphorus 1.7 mg/dL (2.5-4.90); Total Protein 6.4 g/dL (6.4-8.2)
[2019-09-13] MEDS: ASCORBIC ACID 1,000 MG TAB PO SCH (09:48)
[2019-09-13] MEDS: ASPirin 81 mg TAB PO SCH (09:48)
[2019-09-13] MEDS: CHOLECALCIFEROL (VITD3) 1,000UNIT=25mCg TAB PO SCH (09:48)
[2019-09-13] MEDS: ZINC SULFATE 220mg CAP or TAB PO SCH (09:49)
[2019-09-13] MEDS: FLUDROCORTISONE ACETATE 0.1 MG TAB PO SCH (09:49)
[2019-09-13] MEDS: ISOSORBIDE MONONITRATE ER 60 MG TAB PO SCH (09:50)
[2019-09-13] MEDS: ENOXAPARIN SOD 40 MG/0.4 ML SYRINGE SC SCH (09:50)
[2019-09-13] MEDS: DOXYCYCLINE 100 MG TAB/CAP PO SCH ×2 (09:50→22:21)
[2019-09-13] MEDS: CYANOCOBALAMIN 500 MCG TAB PO SCH (09:51)
[2019-09-13] MEDS ORDERED: ERTAPENEM SOD INJ 1 GM in SODIUM CHL 0.9% 50 ML IV SCH (10:00)
[2019-09-13] MEDS ORDERED: POTASSIUM PHOSPHATE 44 MEQ in D5W 5% 250 ML IV ONE (10:45)
[2019-09-13] MEDS ORDERED: POTASSIUM EFFERVESENT TAB 25 MEQ PO ONE (12:00)
--- NOTE | 2019-09-13 12:45 | NUR ---
BLOOD PRESSURE PATIENT B/P 81/46. PATIENT ALERT AND ORIENTED. NO S/S OF DISTRESS. WILL NOTIFY MD. PAGED DR MCDERMOTT
--- NOTE | 2019-09-13 13:07 | NUR ---
CALL BACK RECEIVED CALL FROM DR MCDERMOTT RE: B/P 81/46. NEW ORDERS RECEIVED/WILL CARRY OUT. WILL CONTINUE TO MONITOR
[2019-09-13] MEDS ORDERED: SODIUM CHLORIDE 0.9% 1,000 ML IV ONE (13:15)
--- NOTE | 2019-09-13 14:21 | NUR ---
MDI ADMINISTER BY SUSIE AHMADI.
--- NOTE | 2019-09-13 16:20 | NUR ---
WOUND WOUND DRESSING CHANGED TO RIGHT ARM AND SACRUM PER WOUND CARE ORDERS
--- NOTE | 2019-09-13 19:20 | NUR ---
opening note pt alert to self. respirations even and nonlabored on 2Lnc. pt is Q2 turn. maldonado in place, patent, below bladder, without kinks and draining. no s/s of pain or discomfort at this time, will continue to monitor. bed in low locked position, call light within reach.
[2019-09-13] MEDS: MEROPENEM 1GM IVPB 100 ML IV SCH (22:20)
[2019-09-13] MEDS: ACETAMINOPHEN 325 MG TAB PO PRN (22:22)
[2019-09-14 05:00] VITALS: BP 129/61
[2019-09-14] MEDS: InsuLIN REG 1unit/0.01ml Soln (100units/ml) SC SCH ×3 (05:41→18:00)
[2019-09-14] MEDS: ACCU-CHEK COMFORT CURVE STRIP VI SCH ×3 (05:41→18:25)
[2019-09-14] MEDS: ALBUTEROL SULF HFA 90MCG INH 200DOSE IN SCH ×3 (06:10→22:18)
[2019-09-14] MEDS: CARBIDOPA W LEVODOPA 25/100mg TABLET PO SCH ×4 (06:31→22:29)
--- NOTE | 2019-09-14 07:27 | NUR ---
CLOSING NOTE pt resting in semi fowlers with HOB at 30 degrees. respirations even and nonlabored on 3Lnc. endorsed care to day shift RN.
--- NOTE | 2019-09-14 07:30 | NUR ---
Opening Shift Note Assumed care of patient, awake and alert. No S/S of distress/SOB or pain. Instructed on POC and to call for assist PRN, will continue to monitor for changes Q1hr and PRN. Fall precautions in place per safety protocol.
[2019-09-14] MEDS: hydrALAZINE HCL 20 MG/ML VL IV PRN (09:14)
[2019-09-14] MEDS: DOXYCYCLINE 100 MG TAB/CAP PO SCH ×2 (10:01→22:30)
[2019-09-14] MEDS: FLUDROCORTISONE ACETATE 0.1 MG TAB PO SCH (10:01)
[2019-09-14] MEDS: ASPirin 81 mg TAB PO SCH (10:01)
[2019-09-14] MEDS: ZINC SULFATE 220mg CAP or TAB PO SCH (10:01)
[2019-09-14] MEDS: MEROPENEM 1GM IVPB 100 ML IV SCH ×3 (10:01→22:29)
[2019-09-14] MEDS: CYANOCOBALAMIN 500 MCG TAB PO SCH (10:01)
[2019-09-14] MEDS: CHOLECALCIFEROL (VITD3) 1,000UNIT=25mCg TAB PO SCH (10:02)
[2019-09-14] MEDS: ENOXAPARIN SOD 40 MG/0.4 ML SYRINGE SC SCH (10:02)
[2019-09-14] MEDS: ASCORBIC ACID 1,000 MG TAB PO SCH (10:02)
[2019-09-14 12:36] VITALS: BP 126/55
--- NOTE | 2019-09-14 13:02 | NUR ---
Nutrition Follow-up Notes Wt.: 43.7 kg Unable to talk to pt as pt COVID positive. pt is currently on CCHO 60 gm diet with inadequate PO of < 505 x 4 per RN doc [employer] needs IBW 47 [id number] kcals (25-30 kcal/kgBW), Est Protein needs: 47-56 gms/day (1.0-1.2 gm/kgBW). Will continue to monitor and reassess prn. Labs: BUN 25 H, GLU 155 H, CA 8.1 L, ALB 2.7 L. Skin: Joaquim scale 12 high risk refer to WC notes for details. pt on MVI/VIT C GI: Pt had 1 BM today per wind turbine design engineer. PES: Increased nutrient needs r.t current medical condition aeb pt`s with poor PO and on PN support Altered nutrition related lab values r.t current chronic medical condition aeb elev BUN mod hypoalb Will continue to monitor PO intake, skin status, pertinent labs and weight trend. F/u in 3-5 days. Rec.: 1.) consider 2 gm na diet if blood glu wnl as pt with no hx of DM. 2) consider alternate nutrition support if pt continues to have poor PO. 3) consider ensure enlive 1 carton bid. 4) continue current plan of care
--- NOTE | 2019-09-14 15:18 | NUR ---
assessment Patient is a 79 year old female who is covid positive. Per patients pennie Engel [phone] prior to admission patient resided at [facility] level 6 and functioned with the help of staff. Toro informed me patient was transferred to ER due to syncope and fever. Patient tested positive for Covid 19. Patients PCP is Dr Matute. patient has a wheelchair for home use at [place]. Per Toro patient to return home to [facility] on discharge. I informed Toro patients post discharge needs to be determined prior to discharge. Toro verbalized understanding. [facility] is requiring another covid test on discharge and will accept patient back to facility. Dr Horne has been notified. Addendum: 09/14/19 at 1533 by Anita APODACA Amended: Links added.
[2019-09-14 16:44] VITALS: BP 126/55
--- NOTE | 2019-09-14 19:08 | NUR ---
Endorsed care to night RN. Patient resting, no distress, sob, or pain noted.
--- NOTE | 2019-09-14 19:10 | NUR ---
opening note pt alert to self. respirations even and nonlabored on 2Lnc. pt is Q2 turn. pt denies pain at this time. no visible distress noted. bed is in a low locked position, side rails x2. call light is within reach.
[2019-09-14 22:00] VITALS: BP 141/77
[2019-09-15] MEDS: ACCU-CHEK COMFORT CURVE STRIP VI SCH ×5 (00:14→23:55)
[2019-09-15 05:00] VITALS: BP 142/64
[2019-09-15 05:32] LABS: BUN/Creatinine Ratio 40.7; Calcium 7.9 mg/dL (8.5-10.1)
[2019-09-15] MEDS: ALBUTEROL SULF HFA 90MCG INH 200DOSE IN SCH ×3 (06:00→21:30)
[2019-09-15] MEDS: InsuLIN REG 1unit/0.01ml Soln (100units/ml) SC SCH ×5 (06:00→23:41)
[2019-09-15] MEDS: CARBIDOPA W LEVODOPA 25/100mg TABLET PO SCH ×4 (06:06→23:55)
--- NOTE | 2019-09-15 07:30 | NUR ---
closing note pt position in semi fowlers with HOB at 30 degrees. respirations even and nonlabored on 2Lnc. no s/s of distress. bed in low locked position, call light within reach.
[2019-09-15 09:20] VITALS: BP 146/64
[2019-09-15] MEDS: CYANOCOBALAMIN 500 MCG TAB PO SCH ×2 (10:00→11:15)
[2019-09-15] MEDS: ZINC SULFATE 220mg CAP or TAB PO SCH (11:14)
[2019-09-15] MEDS: ASPirin 81 mg TAB PO SCH (11:14)
[2019-09-15] MEDS: ASCORBIC ACID 1,000 MG TAB PO SCH (11:14)
[2019-09-15] MEDS: MEROPENEM 1GM IVPB 100 ML IV SCH ×2 (11:14→23:55)
[2019-09-15] MEDS: DOXYCYCLINE 100 MG TAB/CAP PO SCH ×2 (11:15→23:55)
[2019-09-15] MEDS: ENOXAPARIN SOD 40 MG/0.4 ML SYRINGE SC SCH (11:15)
[2019-09-15] MEDS: FLUDROCORTISONE ACETATE 0.1 MG TAB PO SCH (11:15)
[2019-09-15] MEDS: CHOLECALCIFEROL (VITD3) 1,000UNIT=25mCg TAB PO SCH (11:15)
[2019-09-15 13:00] VITALS: BP 127/57
--- NOTE | 2019-09-15 13:58 | NUR ---
La MCDERMOTT AT BEDSIDE. INSTRUCTED TO PLACE PATIENT ON ROOM AIR AND MONITOR OXYGEN SATURATIONS.
[2019-09-15] MEDS ORDERED: POTASSIUM CHL 20 Meq TABLET PO ONE (14:15)
[2019-09-15 16:57] VITALS: BP 161/73
[2019-09-15] MEDS: hydrALAZINE HCL 20 MG/ML VL IV PRN (19:46)
--- NOTE | 2019-09-15 21:30 | NUR ---
MDI ADMINISTERED AT THIS TIME WITH HOLDING CHAMBER ATTACHMENT. SPO2 93% ON 2L NC. WILL CONTINUE WITH NEXT SCHEDULED TX.
[2019-09-16] MEDS: InsuLIN REG 1unit/0.01ml Soln (100units/ml) SC SCH ×2 (05:18→12:31)
[2019-09-16] MEDS: ACCU-CHEK COMFORT CURVE STRIP VI SCH ×2 (05:19→12:31)
[2019-09-16] MEDS: CARBIDOPA W LEVODOPA 25/100mg TABLET PO SCH ×3 (05:22→22:36)
[2019-09-16 05:54] VITALS: BP 135/57
[2019-09-16] MEDS: ALBUTEROL SULF HFA 90MCG INH 200DOSE IN SCH ×3 (07:26→22:36)
--- NOTE | 2019-09-16 07:26 | NUR ---
RT NOTE: MDI GIVEN WITH HOLDING CHAMBER. NO SIGNS OF DISTRESS NOTED AT THIS TIME. ON 2L NC SPO2 98 HR 77 RR 20. WILL CONTINUE TO MONITOR.
--- NOTE | 2019-09-16 07:30 | NUR ---
Opening Shift Note RECEIVED REPORT FROM NOC RN. Assumed care of patient, awake and alert. PATIENT ON OXYGEN AT 2 LPM VIA NASAL CANNULA WITH no S/S of distress/SOB or pain. BED IN LOWEST, LOCKED POSITION WITH SIDERAILS UP x2 AND CALL LIGHT WITHIN REACH. Instructed on POC and to call for assist PRN, will continue to monitor for changes Q1hr and PRN.
[2019-09-16 08:59] VITALS: BP 166/62
[2019-09-16] MEDS: MEROPENEM 1GM IVPB 100 ML IV SCH ×2 (12:29→22:36)
[2019-09-16] MEDS: ASPirin 81 mg TAB PO SCH (12:29)
[2019-09-16] MEDS: ZINC SULFATE 220mg CAP or TAB PO SCH (12:29)
[2019-09-16] MEDS: ENOXAPARIN SOD 40 MG/0.4 ML SYRINGE SC SCH (12:30)
[2019-09-16] MEDS: ASCORBIC ACID 1,000 MG TAB PO SCH (12:30)
[2019-09-16] MEDS: CHOLECALCIFEROL (VITD3) 1,000UNIT=25mCg TAB PO SCH (12:30)
[2019-09-16] MEDS: FLUDROCORTISONE ACETATE 0.1 MG TAB PO SCH (12:30)
[2019-09-16] MEDS: CYANOCOBALAMIN 500 MCG TAB PO SCH (12:30)
[2019-09-16 12:57] VITALS: BP 166/62
[2019-09-16 13:00] VITALS: BP 133/66
[2019-09-16] MEDS ORDERED: METOPROLOL SUCCINATE XL 50 MG TAB PO ONE (14:45)
--- NOTE | 2019-09-16 14:56 | NUR ---
RT NOTE: MDI TX GIVEN WITH SPACER. NO SIGNS OF DISTRESS NOTED AT THIS TIME. ON 2LNC SPO2 96 HR 82 HR 20. MD LOUIE AT BEDSIDE. WILL CONTINUE TO MONITOR.
--- NOTE | 2019-09-16 16:28 | NUR ---
RE-ASSESSMENT Per [facility] director of [facility] services she will not accept patient back with a positive covid. Dr Walker has been notified. Per Dr Walker patient still has symptoms and is holding discharge. Addendum: 09/16/19 at 1638 by Anita APODACA Amended: Links added.
[2019-09-16 17:19] VITALS: BP 137/57
--- NOTE | 2019-09-16 19:52 | NUR ---
Opening Shift Note Received report and assumed care of patient. Patient is awake and alert. No signs or symptoms of distress noted, patient currently denies pain. Instructed patient on plan of care and to call for assistance as needed. Will continue to monitor.
--- NOTE | 2019-09-16 21:10 | NUR ---
IV insertion Patient does not have IV access. IV access obtained, via sterile technique by inserting 22 gauge Iv catheter to Right forearm. IV secured properly. Patient tolerated well.
[2019-09-16 22:00] VITALS: BP 135/67
[2019-09-17 05:00] VITALS: BP 143/58
[2019-09-17] MEDS: CARBIDOPA W LEVODOPA 25/100mg TABLET PO SCH ×4 (05:57→22:15)
[2019-09-17] MEDS: ALBUTEROL SULF HFA 90MCG INH 200DOSE IN SCH ×3 (05:57→22:15)
--- NOTE | 2019-09-17 05:57 | NUR ---
Respiratory note: PT RESTING COMFORTABLY. NO RESPIRATORY DISTRESS NOTED. SPO2 95% ON 3L NC, HR 76, RR 16, BS CLEAR/DIMINISHED BILATERALLY. 1 PUFF ALBUTEROL GIVEN BY RN VIA MDI WITH CHAMBER, WITH NO ADVERSE EFFECTS NOTED. PT INFORMED TO PUSH CALL BUTTON IF INCREASED WOB, SOB, OR WHEEZING OCCURS. NO FURTHER RESPIRATORY INTERVENTIONS INDICATED. CHARTING COMPLETE FROM OUTSIDE OF PT ROOM.
[2019-09-17 09:00] VITALS: BP 154/72
--- NOTE | 2019-09-17 09:45 | NUR ---
WOUND CARE NOTE: SPECIALTY AIR MATTRESS ORDERED AT THIS TIME. PATIENT TO BE PLACED, PENDING DELIVERY BY MACARIO MOHAN
[2019-09-17] MEDS: FLUDROCORTISONE ACETATE 0.1 MG TAB PO SCH (10:04)
[2019-09-17] MEDS: ASPirin 81 mg TAB PO SCH (10:04)
[2019-09-17] MEDS: ZINC SULFATE 220mg CAP or TAB PO SCH (10:04)
[2019-09-17] MEDS: MEROPENEM 1GM IVPB 100 ML IV SCH ×2 (10:04→22:16)
[2019-09-17] MEDS: CHOLECALCIFEROL (VITD3) 1,000UNIT=25mCg TAB PO SCH (10:05)
[2019-09-17] MEDS: CYANOCOBALAMIN 500 MCG TAB PO SCH (10:05)
[2019-09-17] MEDS: ASCORBIC ACID 1,000 MG TAB PO SCH (10:05)
[2019-09-17] MEDS: ENOXAPARIN SOD 40 MG/0.4 ML SYRINGE SC SCH (10:05)
[2019-09-17] MEDS: ISOSORBIDE MONONITRATE ER 60 MG TAB PO SCH (10:17)
[2019-09-17] MEDS: METOPROLOL SUCCINATE XL 50 MG TAB PO SCH (10:18)
--- NOTE | 2019-09-17 11:53 | NUR ---
WOUND CARE NOTE: IN TO SEE PATIENT AT THIS TIME FOR SKIN INTEGRITY MONITORING. CURRENT CYNTHIA SCORE IS LOW AT 12. SHE IS ABLE TO SELF TURN/REPOSITION SELF WITH ASSISTANCE BY STAFF. SKIN TEARS TO BILATERAL ELBOWS REMAIN INTACT, WITH STERISTRIPS INTACT TO RIGHT ELBOW, AND SCAB IN TACT ON LEFT ELBOW. OPTIFOAM GENTLE DRESSINGS APPLIED TO COVER AN PROTECT. BILATERAL HEELS ARE RED BUT BLANCHABLE. LEFT SACRUM HAS 4 X 3 CM DARK RED NON BLANCHABLE AREA NOTED. SKIN IS INTACT, NON BLANCHING. WOUND PHOTO TAKEN FOR REFERENCE. APPLIED MOISTURE BARRIER CREAM, OPTIFOAM GENTLE SACRAL DRESSING PER MD ORDER. SPECIALTY AIR MATTRESS HAS BEEN ORDERED FOR PATIENT, PENDING DELIVERY. WILL OBTAIN APRIL FOAM BOOTS FOR APPLICATION TO BILATERAL FEET/HEELS. ADVISED BEDSIDE NURSE TO OVND-TR-VADY POSITIONING EXCEPT FOR MEALS, WORKING WITH PHYSICAL THERAPY. RECOMMEND: AIR MATTRESS, APRLI FOAM BOOTS, SIDE TO SIDE POSITIONING, CONTINUATION WITH ALL WOUND CARE ORDERS PREVIOUSLY PRESCRIBED BY MD. WOUND CARE TEAM WILL CONTINUE TO MONITOR. Addendum: 09/17/19 at 1643 by Ileana Arango RN Amended: Links added.
[2019-09-17 13:00] VITALS: BP_SYST 96; BP_SYST 97; BP_DIAS 45; BP_DIAS 49
--- NOTE | 2019-09-17 13:01 | NUR ---
Dr. Dodd at bedside discussing POC with patient. MD aware patient still has cough.
--- NOTE | 2019-09-17 14:27 | NUR ---
Nutrition Follow-up Notes Wt.: 41.6 kg Unable to talk to pt as pt COVID positive. pt is currently on CCHO 60 gm cardiac puree diet with inadequate PO of < 50% x 2 days per RN doc [employer] needs IBW 47 [id number] kcals (25-30 kcal/kgBW), Est Protein needs: 47-56 gms/day (1.0-1.2 gm/kgBW). Will continue to monitor and reassess prn. Labs: BUN 22 H, CA 7.9 L, Skin: Joaquim scale 12 high risk refer to WC notes for details. pt on MVI/VIT C GI: Pt had 1 BM today per metal fabricating shop helper. PES: Increased nutrient needs r.t current medical condition aeb pt`s with poor PO and on PN support Altered nutrition related lab values r.t current chronic medical condition aeb elev BUN mod hypoalb Will continue to monitor PO intake, skin status, pertinent labs and weight trend. F/u in 3-5 days. Rec.: 1.) consider 2 gm na diet if blood glu wnl as pt with no hx of DM. 2) consider alternate nutrition support if pt continues to have poor PO. 3) consider ensure enlive 1 carton bid. 4) continue current plan of care
--- NOTE | 2019-09-17 14:40 | NUR ---
Respiratory note: 1 PUFF ALBUTEROL (90MCG) GIVEN BY RN VIA MDI WITH CHAMBER, WITH NO ADVERSE EFFECTS NOTED. NO FURTHER RESPIRATORY INTERVENTIONS INDICATED. CHARTING COMPLETE FROM OUTSIDE OF PT ROOM.
--- NOTE | 2019-09-17 15:40 | NUR ---
Cleaned Dentures Cleaned patients dentures and placed denture adhesive on dentures and placed them back into patients mouth.
--- NOTE | 2019-09-17 15:42 | NUR ---
Lab draw wendi labs for patients potassium level/
--- NOTE | 2019-09-17 21:01 | NUR ---
Respiratory note: DISREGARD CHARTING AT 2100. CHARTED WRONG PATIENT
--- NOTE | 2019-09-17 21:10 | NUR ---
IV removal/insertion 22g IV to the Right forearm leaking. Discontinued IV with clean technique, catheter tip fully intact. Pressure dressing applied to site. NOTE: Inserted 22g IV to the Right AC. Patient tolerated well.
[2019-09-17 22:00] VITALS: BP 102/50
[2019-09-18 05:00] VITALS: BP 145/61
[2019-09-18] MEDS: ALBUTEROL SULF HFA 90MCG INH 200DOSE IN SCH ×3 (06:12→21:12)
[2019-09-18] MEDS: CARBIDOPA W LEVODOPA 25/100mg TABLET PO SCH ×4 (06:12→23:09)
--- NOTE | 2019-09-18 07:20 | NUR ---
Opening Shift Note Assumed care of patient, awake and alert. No S/S of distress/SOB or pain. Instructed on POC and to call for assist PRN, will continue to monitor for changes Q1hr and PRN.
[2019-09-18 09:00] VITALS: BP 150/50
[2019-09-18] MEDS: MEROPENEM 1GM IVPB 100 ML IV SCH ×2 (09:30→23:09)
[2019-09-18] MEDS: ZINC SULFATE 220mg CAP or TAB PO SCH (09:31)
[2019-09-18] MEDS: FLUDROCORTISONE ACETATE 0.1 MG TAB PO SCH (09:31)
[2019-09-18] MEDS: ASPirin 81 mg TAB PO SCH (09:31)
[2019-09-18] MEDS: ISOSORBIDE MONONITRATE ER 60 MG TAB PO SCH (09:32)
[2019-09-18] MEDS: CYANOCOBALAMIN 500 MCG TAB PO SCH (09:33)
[2019-09-18] MEDS: METOPROLOL SUCCINATE XL 50 MG TAB PO SCH (09:33)
[2019-09-18] MEDS: ASCORBIC ACID 1,000 MG TAB PO SCH (09:34)
[2019-09-18] MEDS: CHOLECALCIFEROL (VITD3) 1,000UNIT=25mCg TAB PO SCH (09:34)
[2019-09-18] MEDS: ENOXAPARIN SOD 30 MG/0.3 ML SYRINGE SC SCH (09:38)
[2019-09-18 12:53] VITALS: BP 152/57
--- NOTE | 2019-09-18 13:00 | NUR ---
Respiratory note: MDI GIVEN BY RN. PT TOLERATED WELL.
[2019-09-18] MEDS ORDERED: FUROSEMIDE 40 MG/4 ML VIAL IV ONE (14:00)
[2019-09-18] MEDS ORDERED: POTASSIUM EFFERVESENT TAB 25 MEQ PO ONE (14:00)
[2019-09-18 17:00] VITALS: BP 150/52
--- NOTE | 2019-09-18 21:40 | NUR ---
Low Blood Pressure Patient's blood pressure 97/41. Paged Hospitalist. Received new order for 500ml Normal Saline Bolus. Order read back and verified. Will carry out.
[2019-09-18] MEDS ORDERED: SODIUM CHLORIDE 0.9% 500 ML IV ONE (21:45)
[2019-09-18 22:00] VITALS: BP 97/41
--- NOTE | 2019-09-18 22:59 | NUR ---
Blood Pressure Recheck Patient's blood pressure after bolus 116/60. Will continue to monitor.
[2019-09-18] MEDS: ACETAMINOPHEN 325 MG TAB PO PRN (23:10)
[2019-09-18 23:15] VITALS: BP 116/60
[2019-09-19 05:00] VITALS: BP 136/66
[2019-09-19] MEDS: CARBIDOPA W LEVODOPA 25/100mg TABLET PO SCH ×4 (06:42→21:22)
[2019-09-19] MEDS: ALBUTEROL SULF HFA 90MCG INH 200DOSE IN SCH ×3 (06:43→22:00)
[2019-09-19 08:57] VITALS: BP 152/56
[2019-09-19] MEDS ORDERED: FUROSEMIDE 20 MG/2 ML VIAL IV SCH (10:00)
[2019-09-19] MEDS: ASPirin 81 mg TAB PO SCH (11:02)
[2019-09-19] MEDS: ZINC SULFATE 220mg CAP or TAB PO SCH (11:02)
[2019-09-19] MEDS: MEROPENEM 1GM IVPB 100 ML IV SCH ×2 (11:02→21:21)
[2019-09-19] MEDS: POTASSIUM EFFERVESENT TAB 25 MEQ PO SCH (11:03)
[2019-09-19] MEDS: FLUDROCORTISONE ACETATE 0.1 MG TAB PO SCH (11:03)
[2019-09-19] MEDS: ISOSORBIDE MONONITRATE ER 60 MG TAB PO SCH (11:03)
[2019-09-19] MEDS: CYANOCOBALAMIN 500 MCG TAB PO SCH (11:04)
[2019-09-19] MEDS: METOPROLOL SUCCINATE XL 50 MG TAB PO SCH (11:04)
[2019-09-19] MEDS: CHOLECALCIFEROL (VITD3) 1,000UNIT=25mCg TAB PO SCH (11:04)
[2019-09-19] MEDS: ASCORBIC ACID 1,000 MG TAB PO SCH (11:04)
[2019-09-19] MEDS: ENOXAPARIN SOD 30 MG/0.3 ML SYRINGE SC SCH (11:05)
[2019-09-19 13:00] VITALS: BP 115/60
--- NOTE | 2019-09-19 15:02 | NUR ---
SPOKE WITH HEVER FROM [facility] REGARDING PATIENTS STATUS. SHE STATED PATIENTS MUST BE SYMPTOM FREE FOR 3 DAYS AND HAVE A CURRENT COVID NEGATIVE BEFORE PATIENTS ARE ABLE TO RETURN TO THE FACILITY.
[2019-09-19 16:57] VITALS: BP 98/46
[2019-09-19 22:00] VITALS: BP 105/56
[2019-09-20 00:35] VITALS: BP 105/56
[2019-09-20 06:02] VITALS: BP 140/57
[2019-09-20] MEDS: CARBIDOPA W LEVODOPA 25/100mg TABLET PO SCH ×4 (06:09→21:26)
[2019-09-20] MEDS: ALBUTEROL SULF HFA 90MCG INH 200DOSE IN SCH ×3 (06:45→21:57)
--- NOTE | 2019-09-20 06:45 | NUR ---
Respiratory note: PT IS AWAKE, AND COMFORTABLE. NO RESPIRATORY DISTRESS NOTED. SPO2 98% ON 3L NC, HR 58, RR 17, BS DIMINISHED BILATERALLY. 1 PUFF ALBUTEROL (90MCG) GIVEN BY RN, WITH NO AVERSE EFFECTS NOTED. NO FURTHER RESPIRATORY INTERVENTIONS INDICATED. WILL CONTINUE TO MONITOR PT. CHARTING COMPLETE FROM OUTSIDE OF ROOM.
[2019-09-20 08:13] LABS: Basophils # (auto) 0 10 ^3/uL (0-0.2); Basophils % (auto) 0.2 % (0.0-2.0); Eosinophils # (auto) 0.1 10 ^3/uL (0-0.8); Eosinophils % (auto) 0.7 % (0.0-7.0); Hemoglobin 10.7 g/dL (12.2-16.2); Lymphocytes # (auto) 0.4 10 ^3/uL (0.4-5.4); Lymphocytes % (auto) 5.2 % (10.0-50.0); Mean Corpuscular Hemoglobin 29.7 pg (28.0-32.0); Mean Corpuscular Hgb Conc. 31.6 g/dL (32.0-36.0); Mean Corpuscular Volume 94.1 fL (80.0-100.0); Monocytes # (auto) 0.7 10 ^3/uL (0-1.3); Monocytes % (auto) 8.9 % (0.0-12.0); Neutrophils # (auto) 6.6 10 ^3/uL (1.6-8.6); Platelet Count (auto) 306 10^3/uL (140-450); Red Blood Cells 3.61 10^6/uL (4.0-5.20); Red Cell Distribution Width 13.9 % (11.8-14.3); White Blood Cell 7.7 10^3/uL (4.4-10.8)
[2019-09-20 08:26] LABS: BUN/Creatinine Ratio 49.2; Calcium 8.9 mg/dL (8.5-10.1)
[2019-09-20 08:28] LABS: Potassium 2.9 mmol/L (3.5-5.1)
[2019-09-20 08:30] VITALS: BP 182/69
[2019-09-20] MEDS ORDERED: FUROSEMIDE 40 MG TAB PO SCH (10:00)
[2019-09-20] MEDS ORDERED: POTASSIUM EFFERVESENT TAB 25 MEQ PO ONE (10:45)
[2019-09-20] MEDS: FLUDROCORTISONE ACETATE 0.1 MG TAB PO SCH (10:49)
[2019-09-20] MEDS: MEROPENEM 1GM IVPB 100 ML IV SCH ×2 (10:49→21:26)
[2019-09-20] MEDS: ASPirin 81 mg TAB PO SCH (10:49)
[2019-09-20] MEDS: ZINC SULFATE 220mg CAP or TAB PO SCH (10:49)
[2019-09-20] MEDS: ISOSORBIDE MONONITRATE ER 60 MG TAB PO SCH (10:50)
[2019-09-20] MEDS: METOPROLOL SUCCINATE XL 50 MG TAB PO SCH (10:50)
[2019-09-20] MEDS: POTASSIUM EFFERVESENT TAB 25 MEQ PO SCH (10:50)
[2019-09-20] MEDS: ENOXAPARIN SOD 30 MG/0.3 ML SYRINGE SC SCH (10:51)
[2019-09-20] MEDS: CYANOCOBALAMIN 500 MCG TAB PO SCH (10:51)
[2019-09-20] MEDS: ASCORBIC ACID 1,000 MG TAB PO SCH (10:51)
[2019-09-20] MEDS: CHOLECALCIFEROL (VITD3) 1,000UNIT=25mCg TAB PO SCH (10:51)
[2019-09-20] MEDS: FUROSEMIDE 40 MG TAB PO SCH (10:53)
--- NOTE | 2019-09-20 11:50 | NUR ---
Nutrition Follow-up Notes Wt.: 50.0 kg Unable to talk to pt as pt COVID positive. pt is currently on CCHO 60 gm cardiac puree diet with inadequate PO of < 50% for entire hospital stay. Consider adding Ensure enlive 1 carton TID per MD approval [employer] needs IBW 47 [id number] kcals (25-30 kcal/kgBW), Est Protein needs: 47-56 gms/day (1.0-1.2 gm/kgBW). Will continue to monitor and reassess prn. Labs: K 2.9L, CO2 36H, BUn 29H, Alb 2.7L Skin: Joaquim scale 15 mod risk refer to WC notes for details. pt on MVI/VIT C GI: Pt had 1 BM 09/17 per refinery pipeline operator. PES: Increased nutrient needs r.t current medical condition aeb pt`s with poor PO and on PN support Altered nutrition related lab values r.t current chronic medical condition aeb elev BUN mod hypoalb Will continue to monitor PO intake, skin status, pertinent labs and weight trend. F/u in 3-5 days. Rec.: 1.) consider 2 gm na diet if blood glu wnl as pt with no hx of DM. 2) consider alternate nutrition support if pt continues to have poor PO. 3) consider ensure enlive 1 carton TID. 4) continue current plan of care
[2019-09-20 12:30] VITALS: BP 182/72
--- NOTE | 2019-09-20 14:06 | NUR ---
Respiratory note: PT IS RESTING COMFORTABLY. NO RESPIRATORY DISTRESS NOTED. SPO2 98% ON 3L NC, HR 72, RR 20, BS DIMINISHED BILATERALLY. 1 PUFF ALBUTEROL (90MCG) GIVEN BY RN, WITH NO AVERSE EFFECTS NOTED. NO FURTHER RESPIRATORY INTERVENTIONS INDICATED. WILL CONTINUE TO MONITOR PT. CHARTING COMPLETE FROM OUTSIDE OF ROOM.
[2019-09-20 16:30] VITALS: BP 146/58
--- NOTE | 2019-09-20 16:54 | NUR ---
re-assessment Per ss consult [facility]. Per patients son Toro he has no preference on who provides service. Per Toro as long as they take Covid positive patients. MD order has been sent to [facility]. Per Francoise at [facility] she has accepted patient for service to start within 48 hours. Patient is clear for discharge. Addendum: 09/20/19 at 1656 by Anita Butt Amended: Links added.
[2019-09-20 22:00] VITALS: BP 144/66
[2019-09-21 05:00] VITALS: BP 133/61
--- NOTE | 2019-09-21 06:42 | NUR ---
UNABLE TO DRAW MORNING LABS, LABORATORY CALLED AND INFORMED THEM
[2019-09-21] MEDS: ALBUTEROL SULF HFA 90MCG INH 200DOSE IN SCH ×3 (07:30→22:03)
--- NOTE | 2019-09-21 07:30 | NUR ---
Opening Shift Note Assumed care of patient, awake and alert. No S/S of distress/SOB or pain on 3LPM via nasal cannula. Instructed on POC and to call for assist PRN, will continue to monitor for changes Q1hr and PRN. Bed in low and locked position, rails up x2, no-slip socks on.
[2019-09-21] MEDS: CARBIDOPA W LEVODOPA 25/100mg TABLET PO SCH ×4 (08:00→21:31)
[2019-09-21 09:00] VITALS: BP 131/62
[2019-09-21 10:37] LABS: Calcium 8.7 mg/dL (8.5-10.1); Magnesium 2.5 mg/dL (1.6-2.6); Potassium 3.1 mmol/L (3.5-5.1)
[2019-09-21 10:39] LABS: BUN/Creatinine Ratio 42.1
[2019-09-21] MEDS: ZINC SULFATE 220mg CAP or TAB PO SCH (11:21)
[2019-09-21] MEDS: METOPROLOL SUCCINATE XL 50 MG TAB PO SCH (11:21)
[2019-09-21] MEDS: FLUDROCORTISONE ACETATE 0.1 MG TAB PO SCH (11:21)
[2019-09-21] MEDS: POTASSIUM EFFERVESENT TAB 25 MEQ PO SCH (11:21)
[2019-09-21] MEDS: ISOSORBIDE MONONITRATE ER 60 MG TAB PO SCH (11:22)
[2019-09-21] MEDS: CYANOCOBALAMIN 500 MCG TAB PO SCH (11:22)
[2019-09-21] MEDS: ASPirin 81 mg TAB PO SCH (11:22)
[2019-09-21] MEDS: ENOXAPARIN SOD 30 MG/0.3 ML SYRINGE SC SCH (11:22)
[2019-09-21] MEDS: CHOLECALCIFEROL (VITD3) 1,000UNIT=25mCg TAB PO SCH (11:22)
[2019-09-21] MEDS: FUROSEMIDE 40 MG TAB PO SCH (11:23)
[2019-09-21] MEDS: ASCORBIC ACID 1,000 MG TAB PO SCH (11:23)
[2019-09-21] MEDS ORDERED: POTASSIUM CHL 20 Meq TABLET PO ONE (12:15)
--- NOTE | 2019-09-21 12:15 | NUR ---
DR MCDERMOTT AT BEDSIDE
[2019-09-21 12:42] VITALS: BP 134/59
--- NOTE | 2019-09-21 13:45 | NUR ---
re-assessment Per Dr Horne patient has been symptom free for 3 days. Patient has home health set up and will have another Covid test done today per MD. Patient has met all requirements asked of by Tracee at [facility]. Patient is discharged and ready to return home. I have called Tracee and asked for her to return my call. Waiting corporate communications intern back now. Son Toro has also been notified. Addendum: 09/21/19 at 1350 by Anita APODACA Amended: Links added.
[2019-09-21] MEDS ORDERED: POTASSIUM EFFERVESENT TAB 25 MEQ GT ONE (14:15)
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
--- NOTE | 2019-09-21 14:21 | NUR ---
CALL TO [facility] RETURNED MISSED CALL, SPOKE TO MIGUELINA TO UPDATE ON PATIENT STATUS, AFEBRILE AND NO SYMPTOMS OF COUGH BUT PATIENT IS STILL REQUIRING OXYGENATION AND WE ARE ATTEMPTING TO QUALIFY FOR HOME 02. MIGUELINA AGAIN MENTIONED THAT PATIENT NEEDS TO HAVE A NEGATIVE RESULT BEFORE [facility]URNING TO [facility].
--- NOTE | 2019-09-21 14:50 | NUR ---
CALL FROM [place] DIRECTOR VERIFIED FROM HEVER THAT PATIENT DOES NOT NEED TO HAVE A NEGATIVE RESULT PRIOR TO DISCHARGE, JUST TO HAVE BEEN ASYMPTOMATIC FOR 3 DAYS AND THAT THERE IS A RECENT TEST ON FILE.
--- NOTE | 2019-09-21 16:12 | NUR ---
D/C planning Per consult for home oxygen at 3l/min. Faxed clinical information to [facility] requesting for oxygen to be deliver to front lobby. Per Shasta Moore ) they will deliver upon d/c day.
[2019-09-21 17:00] VITALS: BP 112/50
--- NOTE | 2019-09-21 18:37 | NUR ---
OXYGEN DELIVERED [facility] DELIVERED TO FRONT LOBBY, AMBULATED UP TO COVID UNIT AND PLACED BEDSIDE.
[2019-09-21 21:00] VITALS: BP 120/52
--- NOTE | 2019-09-21 21:26 | NUR ---
RT NOTE PT WAS SEEN BY RT FOR MDI TX. PT TOLERATES WELL VIA SPACER. PT IS ON BEDSIDE POX. CONT ORDERED Addendum: 09/21/19 at 2331 by Aleyda Zhou RT Amended: Links added.
[2019-09-21] MEDS: NITROFURANTOIN 100 mg CAP PO SCH (21:31)
[2019-09-22] MEDS: hydrALAZINE HCL 20 MG/ML VL IV PRN (04:13)
[2019-09-22 05:00] VITALS: BP 151/86
[2019-09-22] MEDS: CARBIDOPA W LEVODOPA 25/100mg TABLET PO SCH ×2 (06:03→12:09)
[2019-09-22] MEDS: ALBUTEROL SULF HFA 90MCG INH 200DOSE IN SCH ×2 (06:08→14:26)
[2019-09-22 06:14] VITALS: BP 107/49
--- NOTE | 2019-09-22 07:30 | NUR ---
Opening Shift Note Assumed care of patient, awake and alert. No S/S of distress/SOB or pain on 3 LPM via nasal cannula. Instructed on POC and to call for assist PRN, will continue to monitor for changes Q1hr and PRN. Bed in low and locked position, rails up x2, no-slip socks on.
[2019-09-22 08:12] VITALS: BP 98/41
--- NOTE | 2019-09-22 09:10 | NUR ---
COVID SAMPLE AMBULATED TO LAB BY HUGH CORTES.
[2019-09-22] MEDS: NITROFURANTOIN 100 mg CAP PO SCH (09:35)
[2019-09-22] MEDS: POTASSIUM EFFERVESENT TAB 25 MEQ PO SCH (09:35)
[2019-09-22] MEDS: ZINC SULFATE 220mg CAP or TAB PO SCH (09:35)
[2019-09-22] MEDS: ASPirin 81 mg TAB PO SCH (09:35)
[2019-09-22] MEDS: FLUDROCORTISONE ACETATE 0.1 MG TAB PO SCH (09:35)
[2019-09-22] MEDS: ENOXAPARIN SOD 30 MG/0.3 ML SYRINGE SC SCH (09:36)
[2019-09-22] MEDS: CYANOCOBALAMIN 500 MCG TAB PO SCH (09:36)
[2019-09-22] MEDS: ASCORBIC ACID 1,000 MG TAB PO SCH (09:36)
[2019-09-22] MEDS: METOPROLOL SUCCINATE XL 50 MG TAB PO SCH (09:36)
[2019-09-22] MEDS: CHOLECALCIFEROL (VITD3) 1,000UNIT=25mCg TAB PO SCH (09:36)
[2019-09-22] MEDS: FUROSEMIDE 40 MG TAB PO SCH (09:37)
[2019-09-22] MEDS: ISOSORBIDE MONONITRATE ER 60 MG TAB PO SCH (09:37)
--- NOTE | 2019-09-22 09:52 | NUR ---
re-assessment Patient has not had her follow up covid test done as of now. I informed Ivanna AHMADI that patient needs covid test done this morning so we can discharge her back to [facility] this afternoon. Ivanna verbalized understanding. Addendum: 09/22/19 at 0953 by Anita APODACA Amended: Links added.
--- NOTE | 2019-09-22 11:25 | NUR ---
pt refused PT tx stating "Not today". Addendum: 09/22/19 at 1251 by Ronnell Patel [employer] GLAZIER Amended: Links added.
[2019-09-22 13:00] VITALS: BP 114/60
[2019-09-22 14:33] VITALS: BP 114/65
--- NOTE | 2019-09-22 16:40 | NUR ---
re-assessment Patients 3rd covid test has been sent to [facility]. Per Tracee patient is now cleared to return to [place]. Per Tracee a rivet driver will be here at 5pm to transport patient home. Repeat covid test order has been sent to [facility] and to [facility]. Addendum: 09/22/19 at 1649 by Anita APODACA Amended: Links added.
[2019-09-22 17:00] VITALS: BP 141/68
--- NOTE | 2019-09-22 17:33 | NUR ---
DISCHARGE Discharge instructions given as ordered. Encourage to follow up with PMD as instructed. All questions and concerns addressed. Patient verbalized understanding. Medication reconciliation form completed and copy given to patient. Home medications held in Pharmacy returned to patient, and needed vaccines given. IV removed with catheter intact, pressure dressing applied. Telemetry unit returned to ICU. Patient taken to vehicle via wheelchair with all personal belongings, accompanied by [employer] owner operator tanker truck driver and with her portable oxygen. No distress noted at time of departure.
== END 2019-09-22 17:33 | disposition home health service (06) | DRG 871 ==
LOC: EDBD 17:31 → ER 17:31 → TELE 17:32 → TELE-EAST 09-10 01:25
PROVIDERS: ADMIT Hospitalist; ATTEND Internal Medicine
DX: A41.9 Sepsis, unspecified organism (principal); U07.1 COVID-19; J96.00 Acute respiratory failure, unspecified whether with hypoxia or hypercapnia; G92 Toxic encephalopathy; I50.32 Chronic diastolic (congestive) heart failure; N39.0 Urinary tract infection, site not specified; G20 Parkinson's disease; I11.0 Hypertensive heart disease with heart failure; D69.6 Thrombocytopenia, unspecified; E87.6 Hypokalemia; D64.9 Anemia, unspecified; E86.0 Dehydration; I25.10 Atherosclerotic heart disease of native coronary artery without angina pectoris; Z66 Do not resuscitate; Z95.1 Presence of aortocoronary bypass graft; Z88.0 Allergy status to penicillin; Z88.2 Allergy status to sulfonamides; Z90.49 Acquired absence of other specified parts of digestive tract; E78.5 Hyperlipidemia, unspecified
CPT/HCPCS: 36415; 36600; 71045; 80048; 80053; 80307; 81001; 82040; 82728; 82805; 82962; 83036; 83605; 83615; 83735; 83880; 84100; 84132; 84478; 84484; 85025; 85610; 85730; 86141; 87040; 87070; 87077; 87081; 87186; 87804; 87880; 93005; 94640; 97110; 97530; G0378; J0696; J1335; J1815; J2001; J2185; J7060

== ENCOUNTER 2019-10-24 18:29 | Inpatient (IN) | payer MEDICARE, OTHER ==
[~2019-10-24] VITALS: Ht 157.5 cm; Wt 59.3 kg
[2019-10-24 20:23] LABS: Basophils # (auto) 0.1 10 ^3/uL (0-0.2); Basophils % (auto) 0.6 % (0.0-2.0); Eosinophils # (auto) 0.1 10 ^3/uL (0-0.8); Eosinophils % (auto) 1.1 % (0.0-7.0); Hematocrit 33.9 % (36.0-46.0); Hemoglobin 10.6 g/dL (12.2-16.2); Lymphocytes # (auto) 0.6 10 ^3/uL (0.4-5.4); Lymphocytes % (auto) 6.3 % (10.0-50.0); Mean Corpuscular Hemoglobin 28.7 pg (28.0-32.0); Mean Corpuscular Hgb Conc. 31.4 g/dL (32.0-36.0); Mean Corpuscular Volume 91.6 fL (80.0-100.0); Monocytes # (auto) 0.5 10 ^3/uL (0-1.3); Monocytes % (auto) 5.9 % (0.0-12.0); Neutrophils % (auto) 86.1 % (37.0-80.0); Platelet Count (auto) 266 10^3/uL (140-450); Red Cell Distribution Width 15.4 % (11.8-14.3); White Blood Cell 9.3 10^3/uL (4.4-10.8)
[2019-10-24 20:42] LABS: Albumin 2.1 g/dL (3.4-5.0); Anion Gap 8 (5-15); Blood Urea Nitrogen 31 mg/dL (7-18); Calcium 8.7 mg/dL (8.5-10.1); Carbon Dioxide 28 mmol/L (21-32); Chloride 106 mmol/L (98-107); Glucose 90 mg/dL (74-106); Magnesium 2.2 mg/dL (1.6-2.6); Potassium 3.8 mmol/L (3.5-5.1); Sodium 142 mmol/L (136-145)
[2019-10-24 20:43] LABS: INR 1.19 (0.9-1.15); Partial Thromboplastin Time 25.6 sec (23.0-31.2)
[2019-10-24 20:44] LABS: Alanine Aminotransferase 7 U/L (13-56); Aspartate Aminotransferase 12 U/L (15-37); BUN/Creatinine Ratio 55.4; GFR African American 134 mL/min; GFR Non-African American 110 mL/min
[2019-10-24 20:49] LABS: Alkaline Phosphatase 90 U/L (45-117); Bilirubin, Total 0.5 mg/dL (0.2-1.0); Total Protein 6.8 g/dL (6.4-8.2)
[2019-10-24 22:24] LABS: Urine Bacteria MOD /hpf (None Seen); Urine Blood Negative /uL (Negative); Urine Specific Gravity 1.018 (1.001-1.035); Urine WBC 49 /hpf (0 - 5)
[2019-10-25] VITALS (7 sets, daily range): BP systolic 96–136; BP diastolic 49–68
[2019-10-25] MEDS ORDERED: cefTRIAXone 1GM/50ML D5W 50 ML IV ONE (01:45)
[2019-10-25] MEDS ORDERED: ALBUTEROL SULF 2.5 MG/0.5ML(0.5%) NEB SOLN NEB PRN (03:00)
[2019-10-25] MEDS ORDERED: ONDANSETRON HCL 4 MG/2 ML VIAL IV PRN (03:00)
[2019-10-25] MEDS ORDERED: IOHEXOL 350 MG/ML 100ML IJ ONE (03:10)
--- NOTE | 2019-10-25 05:58 | NUR ---
MS admit from ER VENANCIO SARKAR admitted to MS after SBAR received. Patient oriented to RUDI QUEVEDO, RN primary RN, unit, room, bed, and unit policies regarding patient care and visiting hours. Patient weighed by bedscale and encouraged to call if they need something. All questions and concerns addressed. fall precautions in place.
[2019-10-25] MEDS ORDERED: CLINDAMYCIN 600MG IV 50 ML IV SCH (06:00)
--- NOTE | 2019-10-25 06:07 | NUR ---
oxygen saturation 84% rr 21 patient. patient hob continues to be raised oxygen raised to 6 l oxygen saturation 94% rr 19. fall precautions in place no signs of sob distress or pain
--- NOTE | 2019-10-25 06:16 | NUR ---
Paged hospitalist for Ultrasound result awaiting call back
--- NOTE | 2019-10-25 06:20 | NUR ---
patient is confused unable to provide information for admission. questions answered per medical record will endorse care to dayshift rn to update information.
--- NOTE | 2019-10-25 06:52 | NUR ---
Patient rounds patient resting in bed bilateral chest rise and fall. iv intact and patent. maldonado catheter in place and draining. fall precautions in place. no signs of sob distress or pain
--- NOTE | 2019-10-25 06:57 | NUR ---
Hospitalist Huber notified of venous ultrasound results informed [employer] patient is on lovenox. new orders received orders read back and verified by fernanda gallegos
--- NOTE | 2019-10-25 07:13 | NUR ---
report given to dayshift rn patient shows no signs of sob distress or pain. fall precautions in place. head of the bed elevated. endorse care to dayshift rn to update patient information with phone number obtain from medical record [phone] sam lozada.
[2019-10-25] MEDS: ALBUTEROL SULF HFA 90MCG INH 200DOSE IN SCH ×3 (07:23→21:37)
--- NOTE | 2019-10-25 08:00 | NUR ---
OPEN SHIFT NOTE Patient alert to name, patient is confused unable to provide information. Patient unable to swallow water or pills. IV to left wrist patent running antibiotics. Grajeda patent draining cloudy yellow urine with a strong odor.Bed in lowest position, wheels locked, bed alarm on. Wound consult pending; patient will need an air mattress.Will continue to monitor.
[2019-10-25] MEDS ORDERED: ENOXAPARIN SOD 40 MG/0.4 ML SYRINGE SC SCH (10:00)
[2019-10-25] MEDS: ISOSORBIDE MONONITRATE ER 60 MG TAB PO SCH (10:00)
[2019-10-25] MEDS: FAMOTIDINE 20 MG TAB PO SCH (10:00)
[2019-10-25] MEDS: METOPROLOL SUCCINATE XL 50 MG TAB PO SCH (10:00)
[2019-10-25] MEDS ORDERED: ENOXAPARIN SOD 30 MG/0.3 ML SYRINGE SC SCH (10:00)
[2019-10-25] MEDS: cefTRIAXone 1GM/50ML D5W 50 ML IV SCH (11:02)
[2019-10-25] MEDS: ENOXAPARIN SOD 40 MG/0.4 ML SYRINGE SC SCH ×2 (11:02→21:30)
--- NOTE | 2019-10-25 12:05 | NUR ---
provider bedside Dr huddleston discussed with the patients son code status. Patient will be a DNR; consents signed and in the chart.
--- NOTE | 2019-10-25 12:15 | NUR ---
AIR MATTRESS: Air mattress ordered at [facility]. No ETA given, per tech, hazmat cdl a driver will call for ETA. Reference #[id number]. Please call [facility] at if needed to follow up. Addendum: 10/25/19 at 1343 by Kanika Cheng RN Amended: Links added.
--- NOTE | 2019-10-25 12:28 | NUR ---
WOUND CARE NOTE: Wound care in to see patient per wound care request regarding sacral pressure injury that are noted present on admission. Bedside nurse took photograph of patient's wound upon admission for reference. Patient is 79 years old female from prison with admitting diagnosis of Failure To Thrive. Patient is resting in bed in Rm. 233. Patient is awake but not oriented. Patient appears to be in no pain using Carrera Bailey Faces pain Scale. Her Joaquim score is 11. Skin/wound assessment done with the assistance of patient's nurse, DAIANA Solitario. Noted patient's sacrum has large ([id number]) Unstageable Pressure Injury. Wound bed is covered with black soft and hard eschar, toribio wound is bright red with minimal serous drainage, mild odor noted. Cleansed patient's sacral wounds with wound cleanser, patted dry with gauze, applied Thera honey gauze and covered with Opti foam sacral dressing. Patient's bilateral heels noted with blanchable redness, elevated patient's heels on pillows. Patient tolerated well, repositioned patient for comfort facing her Lt. side, redistributed pressure points with pillows . DAIANA Solitario at bedside. RECOMMENDATION: Nursing to continue with daily/PRN dressing change to sacral wound per MD order, Dietary consult, surgical consult, frequent turning and repositioning schedule as condition permits, redistribute pressure points with pillows, air mattress (ordered), frequent toribio care/check, keep clean and dry, David foam boots to BLE, continue monitoring by wound care while patient is hospitalized. Addendum: 10/25/19 at 1428 by Kanika Cheng RN Amended: Links added.
--- NOTE | 2019-10-25 12:28 | NUR ---
Consult Consider Ensure Enlive BID Consider MVI and Vitamin C 500 mg BID Est energy needs [id number] kcal (30-35 kcal/kg BW 42.184kg) est protein needs 42-55g (1-1.3g/kg BW 42.184kg) Will reassess prn. Addendum: 10/25/19 at [address] Amended: Links added.
--- NOTE | 2019-10-25 12:30 | NUR ---
KITCHEN CLEANER BEDSIDE TO EVALUATE SACRUM; DRESSING CHANGED BY WOUND CARE, NEW ORDERS TO BE CARRIED OUT
[2019-10-25] MEDS ORDERED: FLUDROCORTISONE ACETATE 0.1 MG TAB PO ONE (14:15)
--- NOTE | 2019-10-25 14:30 | NUR ---
APRIL BOOTS PLACED ON BILATERAL FEET; PATIENT TOLERATED WELL.
--- NOTE | 2019-10-25 14:32 | NUR ---
assessment Patient is a 79 year old female who is covid positive for the 2nd time. Per patients son Toro [phone] prior to admission patient resided at [facility] level 6 and functioned with the help of staff. Toro informed me patient was transferred to ER due to not eating and shortness of breath. Patients PCP is Dr Matute. Patient has a wheelchair and oxygen for home use at [place]. I informed Toro of patients ss consult for hospice eval. Toro informed me he wants the hospice Dr Martines recommended [facility]. MD order has been sent to [facility]. Mely or Jazzmine from [facility] will contact Toro. Per Toro patient to return home to [place] on discharge on hospice. Toro verbalized understanding. [facility] is requiring another covid test on discharge and will accept patient back to facility. Dr Martines and Ozzie have been notified. Addendum: 10/25/19 at 1435 by Anita APODACA Amended: Links added.
--- NOTE | 2019-10-25 15:00 | NUR ---
PO MEDICATIONS HELD ATTEMPTED SEVERAL TIMES TO GIVE PATIENT WATER IN ORDER TO GIVE PO MEDICATIONS, PATIENT ALSO NOT SWALLOWING APLE SAUCE.PATIENT POCKETING WATER AND NOT SWALLOWING. NOT SAFE FOR PATIENT AT THIS TIME TO TAKE ANYTHING BY MOUTH.
--- NOTE | 2019-10-25 16:04 | NUR ---
HELD AM PO MEDICATION PATIENT REFUSED TO SWALLOW MEDICATIONS; PATIENT SIPPED WATER AND TOLERATED WELL.
--- NOTE | 2019-10-25 18:38 | NUR ---
PATIENT TRANSFERRED TO AIR MATTRESS, TOLERATED WELL.
--- NOTE | 2019-10-25 19:10 | NUR ---
ENDORSED CARE TON NIGHT RN
--- NOTE | 2019-10-25 19:20 | NUR ---
Opening Shift Note Assumed care of patient, awake and alert. No S/S of distress/SOB or pain. Instructed on POC and to call for assist PRN, will continue to monitor for changes Q1hr and PRN. Bed in low position and call light within reach. fall precautions in place. hob elevated.
[2019-10-25] MEDS ORDERED: ATORVASTATIN 20 MG TAB PO SCH (22:00)
--- NOTE | 2019-10-26 00:02 | NUR ---
patient had BM. patient changed and repositioned. fall precautions in place. call light within reach and bed in low position
[2019-10-26 05:00] VITALS: BP 101/55
--- NOTE | 2019-10-26 06:43 | NUR ---
patient rounds patient is awake and alert no signs of sob distress or pain. iv intact and patent. maldonado catheter intact and draining. HOB bed raised. bed in low position call light within reach.
--- NOTE | 2019-10-26 06:56 | NUR ---
Endorsed care to dayshift RN. Patient denies sob distress or pain.
[2019-10-26] MEDS: ALBUTEROL SULF HFA 90MCG INH 200DOSE IN SCH ×2 (07:06→13:54)
--- NOTE | 2019-10-26 08:00 | NUR ---
OPEN SHIFT NOTE Patient alert to name, patient is confused unable to answer questions.No non verbal signs of pain. Patient unable to swallow water or pills. IV to left wrist patent running antibiotics. Grajeda patent draining cloudy yellow urine with a strong odor.Foam boots on both feet, pillow between knees to reduce pressure.Air mattress Bed; bed in lowest position, wheels locked, bed alarm on. Dressing to sacrum clean dry and intact, dressing to be changed today; patient will need an air mattress.Will continue to monitor and turn q 2 hours.
[2019-10-26 09:00] VITALS: BP 108/47
[2019-10-26] MEDS: ENOXAPARIN SOD 40 MG/0.4 ML SYRINGE SC SCH (09:29)
[2019-10-26] MEDS: cefTRIAXone 1GM/50ML D5W 50 ML IV SCH (09:29)
[2019-10-26] MEDS: ISOSORBIDE MONONITRATE ER 60 MG TAB PO SCH (10:00)
[2019-10-26] MEDS: FAMOTIDINE 20 MG TAB PO SCH (10:00)
[2019-10-26] MEDS: METOPROLOL SUCCINATE XL 50 MG TAB PO SCH (10:00)
[2019-10-26] MEDS: FLUDROCORTISONE ACETATE 0.1 MG TAB PO SCH (10:00)
--- NOTE | 2019-10-26 10:00 | NUR ---
WOUND CARE Removed old dressing.Cleansed sacral wound with wound cleanser,pat dry withgauze, Applyed THERA HONEY GAUZE. Covered wound with OPti foam. Patient tolerated well.
[2019-10-26 11:04] LABS: BUN/Creatinine Ratio 73.3; Calcium 8.7 mg/dL (8.5-10.1); Potassium 3.4 mmol/L (3.5-5.1)
[2019-10-26 13:00] VITALS: BP 103/47
[2019-10-26] MEDS: D5W/SOD CHL 0.45%/KCL 20MEQ 1,000 ML IV SCH (13:15)
--- NOTE | 2019-10-26 15:10 | NUR ---
COVID SWAB PERFORMED ON PATIENT AND TAKEN TO LAB.PATIENT TOLERATED WELL.
--- NOTE | 2019-10-26 16:20 | NUR ---
re-assessment Patients pennie Engel has signed all consents and [facility] is ready to admit once patient has a discharge. Per Christa at [facility] patient is cleared to return to [place] once she has a recent covid test on discharge. Waiting on discharge now. Addendum: 10/26/19 at 1624 by Anita APODACA Amended: Links added.
[2019-10-26 17:00] VITALS: BP 117/47
--- NOTE | 2019-10-26 18:46 | NUR ---
closing note patient awake alert to name, patient responded in a faint low voice "hello". wound care performed today. foam boots on repositioned every 2 hours currently on the right side. denied pain when asked "no". no distress. patient pockets food and still unable to swallow water, food or pills.
--- NOTE | 2019-10-26 19:30 | NUR ---
Opening Shift Note Assumed care of patient, awake and alert to self only. No S/S of distress/SOB or pain. Grajeda is in place and hung below bladder draining cloudy straw urine. Call light is within reach, side rails up x2, bed is in the lowest position. Instructed on POC and to call for assist PRN, will continue to monitor for changes Q1hr and PRN.
--- NOTE | 2019-10-26 19:35 | NUR ---
ENDORSED CARE TO NIGHT RN
[2019-10-26] MEDS: APIXABAN 5 MG TAB PO SCH (21:38)
[2019-10-26] MEDS: ALBUTEROL SULF 2.5 MG/0.5ML(0.5%) NEB SOLN NEB SCH (21:45)
--- NOTE | 2019-10-26 21:45 | NUR ---
Respiratory note: AT BEDSIDE FOR AEROSOLIZED MED NEB TX, PT UNABLE TO COORDINATE AND WEAK EFFORT GIVEN TO TAKE MDI. DAIANA NAVA COMMUNICATED ON AEROSOLIZED MED NEB TX GIVEN STOP SIGN POSTED ON PTS ROOM DOOR TO PREVENT CONTACT/CONTAMINATION UNLESS ABSOLUTELY NECESSARY FOR 1 HOUR.
[2019-10-26 22:00] VITALS: BP 139/61
--- NOTE | 2019-10-27 04:34 | NUR ---
IV removal from left hand due to infiltration IV DC'd with clean sterile technique, catheter fully intact. Pressure dressing applied to site. Patient tolerated well.
[2019-10-27 05:00] VITALS: BP 127/58
--- NOTE | 2019-10-27 05:36 | NUR ---
IV insertion to RFA IV access obtained, via clean sterile technique by inserting 22 gauge catheter at RFA after 3 attempt(s). IV secured properly. No trauma to site. Patient tolerated well.
[2019-10-27] MEDS: ALBUTEROL SULF 2.5 MG/0.5ML(0.5%) NEB SOLN NEB SCH ×2 (06:09→14:01)
[2019-10-27 07:35] LABS: Potassium 3.6 mmol/L (3.5-5.1)
--- NOTE | 2019-10-27 07:45 | NUR ---
Opening Shift Note Assumed care of patient, awake and alert to self only. No S/S of distress/SOB or pain. Call light is within reach, side rails up x2, bed is in the lowest position. Instructed on POC and to call for assist PRN, will continue to monitor for changes Q1hr and PRN.
[2019-10-27 07:51] LABS: BUN/Creatinine Ratio 76.2; Calcium 8.6 mg/dL (8.5-10.1)
[2019-10-27 09:01] VITALS: BP 137/67
[2019-10-27] MEDS: cefTRIAXone 1GM/50ML D5W 50 ML IV SCH (09:21)
[2019-10-27] MEDS: D5W/SOD CHL 0.45%/KCL 20MEQ 1,000 ML IV SCH (09:22)
[2019-10-27] MEDS: FAMOTIDINE 20 MG TAB PO SCH (09:22)
[2019-10-27] MEDS: FLUDROCORTISONE ACETATE 0.1 MG TAB PO SCH (09:22)
[2019-10-27] MEDS: APIXABAN 5 MG TAB PO SCH (09:22)
--- NOTE | 2019-10-27 12:10 | NUR ---
REPORT CALLED TO [facility]ERO REPORT GIVEN TO DAIANA WARNER
--- NOTE | 2019-10-27 12:20 | NUR ---
re-assessment Per Dr Horne patient will be discharged today on hospice. I called [facility] and spoke to Darcie and informed her patients Covid test came back negative. Negative test has been sent to [place] and [facility]. Nurse Green has been informed to call Nasir and give report. Once that is done patient will be transported by [facility] care transportation [phone] at 4pm today post discharge. Addendum: 10/27/19 at 1226 by Anita APODACA Amended: Links added.
[2019-10-27 12:50] VITALS: BP 130/71
--- NOTE | 2019-10-27 13:43 | NUR ---
CALL PLACED TO BANDAR ROMERO UPDATED ETA GIVEN
[2019-10-27 13:49] VITALS: BP 110/77
[2019-10-27 16:18] VITALS: BP 132/55
--- NOTE | 2019-10-27 18:30 | NUR ---
Discharge instructions given as ordered. Encourage to follow up with PMD as instructed. All questions and concerns addressed. Patient verbalized understanding. Medication reconciliation form completed and copy given to patient. IV removed with catheter intact, pressure dressing applied,Patient taken to vehicle via wheelchair with all personal belongings, accompanied by staff and family member. No distress noted at time of departure. PT GOING HOME WITH SAFETY TRANSPORT TO [facility]
== END 2019-10-27 18:20 | disposition hospice, home (50) | DRG 177 ==
LOC: EDUNIT# 18:29 → EDBD 18:29 → ER 18:29 → OVERFLOW 18:30 → EAST 10-25 06:00
PROVIDERS: ADMIT Nurse Practitioner; ATTEND Internal Medicine
DX: U07.1 COVID-19 (principal); G92 Toxic encephalopathy; J12.89 Other viral pneumonia; I82.412 Acute embolism and thrombosis of left femoral vein; I50.32 Chronic diastolic (congestive) heart failure; J98.11 Atelectasis; N39.0 Urinary tract infection, site not specified; R62.7 Adult failure to thrive; E86.0 Dehydration; L89.159 Pressure ulcer of sacral region, unspecified stage; G20 Parkinson's disease; E78.5 Hyperlipidemia, unspecified; I11.0 Hypertensive heart disease with heart failure; I25.10 Atherosclerotic heart disease of native coronary artery without angina pectoris; Z51.5 Encounter for palliative care; Z66 Do not resuscitate; Z95.1 Presence of aortocoronary bypass graft; Z74.01 Bed confinement status; Z88.0 Allergy status to penicillin; Z88.2 Allergy status to sulfonamides
CPT/HCPCS: 36415; 71045; 71275; 80048; 80053; 81001; 82550; 82728; 83605; 83735; 83880; 84484; 85025; 85379; 85610; 85730; 87081; 93005; 93970; 94640; 96365; 96366; G0378; J0696; J3490